=== PATIENT | female | born 1970 | race Caucasian/White ===

== ENCOUNTER 2016-09-25 22:44 | Emergency (ER) | payer BC ==
[2016-09-25 22:48] VITALS: RESP 18; TEMP 97.2
[2016-09-25] MEDS ORDERED: SODIUM CHLORIDE 0.9% 1,000 ML IV STA ×2 (22:58)
[2016-09-25] MEDS ORDERED: ONDANSETRON 4 MG/2 ML VIAL IVP STA (23:00)
--- NOTE | 2016-09-25 23:13 | ED ---
Syncope HPI - General Chief Complaint: Syncope Stated Complaint: Syncope Time Seen by Provider: 09/25/16 22:53 Source: patient, family, RN notes reviewed Mode of arrival: wheelchair Limitations: no limitations - History of Present Illness Initial Comments: This is a 46-year-old female history diabetes who states she's been nauseated and having vomiting episodes since 10 PM. She states she passed out on her bed for about 2 minutes. She had a headache prior she still feels nauseated she also complains some swelling to her left leg for about the last week. She has no history of palpitations heart disease lung disease. No prior histories of syncope. No other complaints this time MD Complaint: loss of consciousness, other - Related Data Home Medications Medication Instructions Recorded Confirmed Fish Oil/Dha/Epa [Fish Oil 1,200 1 cap PO DAILY PRN 09/29/14 09/29/14 mg Fish Oil] HYDROcodone/APAP 7.5-325MG [Anderson 1 each PO Q4H PRN 09/29/14 09/29/14 7.5-325] Insulin Aspart [NovoLOG] 0 units SQ ACHS 10/01/14 10/01/14 Insulin Aspart [NovoLOG] 6 SQ TID-W/MEALS 10/01/14 10/01/14 Previous Rx's Medication Instructions Recorded Insulin Glargine [Lantus] 20 unit SQ HS 30 Days 10/01/14 Benzonatate [Tessalon Perles] 100 mg PO TID PRN #15 cap 09/26/16 Ondansetron [Zofran ODT] 4 mg PO Q8HR #10 tab 09/26/16 Allergies Allergy/AdvReac Type Severity Reaction Status Date / Time No Known Allergies Allergy Verified 09/25/16 22:48 Review of Systems ROS Statement: Those systems with pertinent positive or pertinent negative responses have been documented in the HPI. ROS Other: All systems not noted in ROS Statement are negative. Past Medical History Past Medical History: Diabetes Mellitus, Thyroid Disorder History of Any Multi-Drug Resistant Organisms: None Reported Past Surgical History: Hysterectomy Additional Past Surgical History / Comment(s): THYROIDECTOMY 16 YRS AGO Past Anesthesia/Blood Transfusion Reactions: No Reported Reaction Past Psychological History: No Psychological Hx Reported Smoking Status: Never smoker Past Alcohol Use History: None Reported Past Drug Use History: None Reported - Past Family History Mother Family Medical History: Cancer, Deep Vein Thrombosis (DVT) General Exam - General Exam Comments Initial Comments: This is a well-developed well-nourished awake alert oriented 3 female Limitations: no limitations General appearance: alert, in no apparent distress Head exam: Present: atraumatic, normocephalic, normal inspection Eye exam: Present: normal appearance, PERRL, EOMI. Absent: scleral icterus, conjunctival injection, periorbital swelling ENT exam: Present: mucous membranes dry Neck exam: Present: normal inspection. Absent: tenderness, meningismus, lymphadenopathy Respiratory exam: Present: normal lung sounds bilaterally. Absent: respiratory distress, wheezes, rales, rhonchi, stridor Cardiovascular Exam: Present: normal rhythm, tachycardia, normal heart sounds. Absent: systolic murmur, diastolic murmur, rubs, gallop, clicks GI/Abdominal exam: Present: soft, normal bowel sounds. Absent: distended, tenderness, guarding, rebound, rigid Extremities exam: Present: normal inspection, full ROM, normal capillary refill. Absent: tenderness, pedal edema, joint swelling, calf tenderness Back exam: Present: normal inspection Neurological exam: Present: alert, oriented X3, CN II-XII intact Psychiatric exam: Present: normal affect, normal mood Skin exam: Present: warm, dry, intact, normal color. 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 Patient is feeling somewhat better she will be discharged after medications given. Patient will be discharged to follow-up with her doctor and return. She has had a cough which is likely secondary to bronchitis patient be placed on an antitussive. She is a follow-up with her doctor for evaluation of the small left pleural effusion and edema. - Lab Data Result diagrams: 09/25/16 23:20 09/25/16 23:20 Lab Results 09/25/16 09/25/16 09/25/16 Range/Units 23:20 23:20 23:20 WBC 7.1 (3.8-10.6) k/uL RBC 4.22 (3.80-5.40) m/uL Hgb 11.7 (11.4-16.0) gm/dL Hct 35.1 (34.0-46.0) % MCV 83.2 (80.0-100.0) fL MCH 27.7 (25.0-35.0) pg MCHC 33.3 (31.0-37.0) g/dL RDW 13.8 (11.5-15.5) % Plt Count 201 (150-450) k/uL Neutrophils % 63 % Lymphocytes % 28 % Monocytes % 4 % Eosinophils % 2 % Basophils % 1 % Neutrophils # 4.5 (1.3-7.7) k/uL Lymphocytes # 2.0 (1.0-4.8) k/uL Monocytes # 0.3 (0-1.0) k/uL Eosinophils # 0.2 (0-0.7) k/uL Basophils # 0.1 (0-0.2) k/uL PT (9.0-12.0) sec INR (<1.2) APTT (22.0-30.0) sec Sodium 139 (137-145) mmol/L Potassium 4.4 (3.5-5.1) mmol/L Chloride 107 (98-107) mmol/L Carbon Dioxide 22 (22-30) mmol/L Anion Gap 10 mmol/L BUN 16 (7-17) mg/dL Creatinine 0.70 (0.52-1.04) mg/dL Est GFR (MDRD) Af Amer >60 (>60 ml/min/1.73 sqM) Est GFR (MDRD) Non-Af >60 (>60 ml/min/1.73 sqM) Glucose 345 H (74-99) mg/dL Calcium 9.4 (8.4-10.2) mg/dL Magnesium 1.6 (1.6-2.3) mg/dL Total Bilirubin 0.4 (0.2-1.3) mg/dL AST 12 L (14-36) U/L ALT 26 (9-52) U/L Alkaline Phosphatase 88 (38-126) U/L Total Creatine Kinase 76 (30-135) U/L CK-MB (CK-2) 1.0 (0.0-2.4) ng/mL CK-MB (CK-2) Rel Index 1.3 Troponin I <0.012 (0.000-0.034) ng/mL Total Protein 6.2 L (6.3-8.2) g/dL Albumin 3.5 (3.5-5.0) g/dL Urine Color Urine Appearance (Clear) Urine pH (5.0-8.0) Ur Specific Whitney (1.001-1.035) Urine Protein (Negative) Urine Glucose (UA) (Negative) Urine Ketones (Negative) Urine Blood (Negative) Urine Nitrite (Negative) Urine Bilirubin (Negative) Urine Urobilinogen (<2.0) mg/dL Ur Leukocyte Esterase (Negative) Urine RBC (0-5) /hpf Urine WBC (0-5) /hpf Ur Squamous Epith Cells (0-4) /hpf Urine Bacteria (None) /hpf Hyaline Casts (0-2) /lpf Acetone, Qual Negative (Negative) 09/25/16 09/26/16 Range/Units 23:20 00:10 WBC (3.8-10.6) k/uL RBC (3.80-5.40) m/uL Hgb (11.4-16.0) gm/dL Hct (34.0-46.0) % MCV (80.0-100.0) fL MCH (25.0-35.0) pg MCHC (31.0-37.0) g/dL RDW (11.5-15.5) % Plt Count (150-450) k/uL Neutrophils % % Lymphocytes % % Monocytes % % Eosinophils % % Basophils % % Neutrophils # (1.3-7.7) k/uL Lymphocytes # (1.0-4.8) k/uL Monocytes # (0-1.0) k/uL Eosinophils # (0-0.7) k/uL Basophils # (0-0.2) k/uL PT 10.1 (9.0-12.0) sec INR 1.0 (<1.2) APTT 21.9 L (22.0-30.0) sec Sodium (137-145) mmol/L Potassium (3.5-5.1) mmol/L Chloride (98-107) mmol/L Carbon Dioxide (22-30) mmol/L Anion Gap mmol/L BUN (7-17) mg/dL Creatinine (0.52-1.04) mg/dL Est GFR (MDRD) Af Amer (>60 ml/min/1.73 sqM) Est GFR (MDRD) Non-Af (>60 ml/min/1.73 sqM) Glucose (74-99) mg/dL Calcium (8.4-10.2) mg/dL Magnesium (1.6-2.3) mg/dL Total Bilirubin (0.2-1.3) mg/dL AST (14-36) U/L ALT (9-52) U/L Alkaline Phosphatase (38-126) U/L Total Creatine Kinase (30-135) U/L CK-MB (CK-2) (0.0-2.4) ng/mL CK-MB (CK-2) Rel Index Troponin I (0.000-0.034) ng/mL Total Protein (6.3-8.2) g/dL Albumin (3.5-5.0) g/dL Urine Color Light Yellow Urine Appearance Clear (Clear) Urine pH 6.5 (5.0-8.0) Ur Specific Whitney 1.022 (1.001-1.035) Urine Protein 2+ H (Negative) Urine Glucose (UA) 4+ H (Negative) Urine Ketones Negative (Negative) Urine Blood Small H (Negative) Urine Nitrite Negative (Negative) Urine Bilirubin Negative (Negative) Urine Urobilinogen <2.0 (<2.0) mg/dL Ur Leukocyte Esterase Negative (Negative) Urine RBC 4 (0-5) /hpf Urine WBC <1 (0-5) /hpf Ur Squamous Epith Cells 3 (0-4) /hpf Urine Bacteria Rare H (None) /hpf Hyaline Casts 3 H (0-2) /lpf Acetone, Qual (Negative) - Radiology Data Radiology results: report reviewed (I did review the imaging and reports there is evidence of a pleural effusion on the left and some atelectasis in the right ), image reviewed Disposition Clinical Impression: Gastritis, Bronchitis, Diabetes, Pleural effusion Disposition: HOME SELF-CARE Condition: Good Instructions: Gastritis (ED), Acute Bronchitis (ED), Pleural Effusion (ED) Additional Instructions: Keep her appointment with Dr. Ventura as planned Prescriptions: Benzonatate [Tessalon Perles] 100 mg PO TID PRN #15 cap PRN Reason: Cough Ondansetron [Zofran ODT] 4 mg PO Q8HR #10 tab Referrals: Jamila Ventura MD [Primary Care Provider] - 1-2 days
[2016-09-25 23:32] LABS: Basophils # (A) 0.1 k/uL (0-0.2); Basophils % (A) 1 %; CH 28.7; CHCM 34.6; Eosinophils # (A) 0.2 k/uL (0-0.7); Eosinophils % (A) 2 %; HCT 35.1 % (34.0-46.0); HDW 3.14; HGB 11.7 gm/dL (11.4-16.0); Luc # (Auto) 0.09; Luc % (Auto) 1; Lymphocytes % (A) 28 %; MCH 27.7 pg (25.0-35.0); MCHC 33.3 g/dL (31.0-37.0); MCV 83.2 fL (80.0-100.0); Mean Platelet Volume 8.2; Monocytes # (A) 0.3 k/uL (0-1.0); Monocytes % (A) 4 %; Neutrophils # (A) 4.5 k/uL (1.3-7.7); Neutrophils % (A) 63 %; RBC 4.22 m/uL (3.80-5.40); RDW 13.8 % (11.5-15.5); WBC 7.1 k/uL (3.8-10.6); WBC (Perox) 7.38
[2016-09-25 23:42] LABS: ALT 26 U/L (9-52); AST 12 U/L (14-36); Alkaline Phosphatase 88 U/L (38-126); Anion Gap 10 mmol/L; Blood Urea Nitrogen 16 mg/dL (7-17); Calcium 9.4 mg/dL (8.4-10.2); Carbon Dioxide 22 mmol/L (22-30); Chloride 107 mmol/L (98-107); Glucose 345 mg/dL (74-99); Magnesium 1.6 mg/dL (1.6-2.3); Non-African American GFR(MDRD) >60 (>60 ml/min/1.73 sqM); Potassium 4.4 mmol/L (3.5-5.1); Sodium 139 mmol/L (137-145); Total Bilirubin 0.4 mg/dL (0.2-1.3); Total Protein 6.2 g/dL (6.3-8.2)
--- NOTE | 2016-09-25 23:47 | XR ---
EXAM: XR Chest, 2 Views CLINICAL HISTORY: Reason: syncope TECHNIQUE: Frontal and lateral views of the chest. COMPARISON: No relevant prior studies available. FINDINGS: Lungs: Right basilar atelectasis. Pleural space: Small left pleural effusion/pleural thickening. Heart: Unremarkable. No cardiomegaly. Mediastinum: Unremarkable. Bones/joints: Unremarkable. IMPRESSION: 1. Small left pleural effusion/pleural thickening. 2. Right basilar atelectasis.
[2016-09-25 23:51] LABS: Partial Thromboplastin Time 21.9 sec (22.0-30.0); Prothrombin Time 10.1 sec (9.0-12.0)
[2016-09-25 23:53] LABS: Creatine Kinase 76 U/L (30-135)
[2016-09-26 00:06] LABS: Troponin I <0.012 ng/mL (0.000-0.034)
[2016-09-26] MEDS ORDERED: SODIUM CHLORIDE 0.9% 500 ML IV STA (00:15)
[2016-09-26 00:45] LABS: Appearance,Urine Clear (Clear); Bacteria,Urine Rare /hpf; Bilirubin,Urine Negative (Negative); Glucose,Urine (UA) 4+ (Negative); Ketones,Urine Negative (Negative); Leukocyte Esterase,Urine Negative (Negative); Nitrite,Urine Negative (Negative); PH, Urine 6.5 (5.0-8.0); Particle Count 2002; Protein,Urine 2+ (Negative); RBC,Urine 4 /hpf (0-5); Specific Gravity,Urine 1.022 (1.001-1.035); Squamous Epithelial Cell,Urine 3 /hpf (0-4); UA Billing (MACRO vs. MICRO) MICRO; Urobilinogen,Urine <2.0 mg/dL (<2.0); WBC,Urine <1 /hpf (0-5)
[2016-09-26] MEDS ORDERED: ONDANSETRON 4 MG/2 ML VIAL IVP STA (00:55)
[2016-09-26 01:18] VITALS: BP 155/99; PULSE 96
== END 2016-09-26 01:17 | disposition home or self-care (01) ==
LOC: EC 22:44
DX: K29.70 Gastritis, unspecified, without bleeding (principal); J40 Bronchitis, not specified as acute or chronic; J90 Pleural effusion, not elsewhere classified; E11.9 Type 2 diabetes mellitus without complications; Z79.4 Long term (current) use of insulin
CPT/HCPCS: 36415; 93005; 80053; 82550; 82553; 82009; 83735; 84484; 85025; 85610; 85730; 81001; 71020; 99284; 96374; 96376; 96361 ×2; J2405 ×2

== ENCOUNTER → 2016-10-15 | Outpatient (CLI) | payer BC ==
--- NOTE | 2016-10-15 18:45 | ECHOF ---
Referral Reason:R60 Bilat leg edema,I10 Hypertension,J91.8 Pleural MEASUREMENTS -------- HEIGHT: 167.6 cm WEIGHT: 95.3 kg BP: IVSd: 1.0 cm (0.6 - 1.1) LVIDd: 5.2 cm (3.9 - 5.3) LVPWd: 1.2 cm (0.6 - 1.1) IVSs: 1.2 cm LVIDs: 4.0 cm LVPWs: 1.5 cm IVSd: 0.7 cm (0.6 - 1.1) LVIDd: 5.4 cm (3.9 - 5.3) LVPWd: 0.9 cm (0.6 - 1.1) IVSs: 1.1 cm LVIDs: 4.3 cm LVPWs: 1.1 cm EDV(Teich): 140 ml ESV(Teich): 83 ml EF(Teich): 41 % %FS: 20 % SV(Teich): 57 ml Ao Diam: 2.7 cm (2.0 - 3.7) AV Cusp: 2.0 cm (1.5 - 2.6) LA Diam: 2.7 cm (2.7 - 3.8) MV EXCURSION: 11.106 mm (> 18.000) MV EF SLOPE: 71 mm/s (70 - 150) EPSS: 1.8 cm MV E Zoran: 0.85 m/s MV DecT: 86 ms MV A Zoran: 0.86 m/s MV E/A Ratio: 0.99 RAP: 5.00 mmHg RVSP: 7.62 mmHg FINDINGS -------- Sinus rhythm. This was a technically good study. Left ventricular wall thickness is normal. LV size is at upper limits of normal. There is mild global hypokinesis of LV . Overall left ventricular systolic function is mild-moderately impaired with, an EF between 40 - 45 %. The right ventricle is normal in size and function. The left atrium is normal in size. The right atrium is normal in size. The aortic valve is trileaflet, and appears structurally normal. No aortic stenosis or regurgitation. The mitral valve leaflets are mildly thickened. There is trace mitral regurgitation. Trace tricuspid regurgitation present. The right ventricular systolic pressure, as measured by Doppler, is 7.62mmHg. Pulmonic valve appears structurally normal. The aortic root size is normal. There is a small, generalized pericardial effusion present. CONCLUSIONS -------- 1. Sinus rhythm. 2. The mitral valve leaflets are mildly thickened. 3. There is trace mitral regurgitation. 4. Trace tricuspid regurgitation present. 5. The right ventricular systolic pressure, as measured by Doppler, is 7.62mmHg. 6. Pulmonic valve appears structurally normal. 7. The aortic root size is normal. 8. There is a small, generalized pericardial effusion present. 9. This was a technically good study. 10. Left ventricular wall thickness is normal. 11. There is mild global hypokinesis of LV . 12. Overall left ventricular systolic function is mild-moderately impaired with, an EF between 40 - 45 %. 13. The right ventricle is normal in size and function. 14. The left atrium is normal in size. 15. The right atrium is normal in size. 16. The aortic valve is trileaflet, and appears structurally normal. No aortic stenosis or regurgitation. COUNSELLORS: Nidia Santos RDCS
== END | disposition home or self-care (01) ==
LOC: RADECHMAIN 15:45
PROVIDERS: ATTEND Internal Medicine
DX: I08.1 Rheumatic disorders of both mitral and tricuspid valves (principal); J91.8 Pleural effusion in other conditions classified elsewhere
CPT/HCPCS: 93306

== ENCOUNTER → 2016-11-08 | Outpatient (CLI) | payer BC ==
[2016-11-08 17:10] LABS: ALT 30 U/L (9-52); AST 16 U/L (14-36); Alkaline Phosphatase 76 U/L (38-126); Anion Gap 7 mmol/L; Blood Urea Nitrogen 27 mg/dL (7-17); Calcium 9.6 mg/dL (8.4-10.2); Carbon Dioxide 27 mmol/L (22-30); Chloride 101 mmol/L (98-107); Glucose 386 mg/dL (74-99); Non-African American GFR(MDRD) >60 (>60 ml/min/1.73 sqM); Potassium 4.7 mmol/L (3.5-5.1); Sodium 135 mmol/L (137-145); Total Bilirubin 0.3 mg/dL (0.2-1.3); Total Protein 6.4 g/dL (6.3-8.2)
== END | disposition home or self-care (01) ==
LOC: LABWHC1 16:09
PROVIDERS: ATTEND Internal Medicine Interventional Cardiology
DX: I42.9 Cardiomyopathy, unspecified (principal)
CPT/HCPCS: 36415; 80053; 83880

== ENCOUNTER 2017-03-07 07:18 | Emergency (ER) | payer BC ==
--- NOTE | 2017-03-07 08:08 | ED ---
General Adult HPI - General Chief complaint: Upper Respiratory Infection Stated complaint: Cough Time Seen by Provider: 03/07/17 07:56 Source: patient, RN notes reviewed, old records reviewed Mode of arrival: ambulatory Limitations: no limitations - History of Present Illness Initial comments: This patient is a 47-year-old female presents today chief complaint of cough for the past week. She reports a nonproductive cough. She stores initially started out with sinus congestion and a sore throat. She reports she feels chilled, but denies any fevers. She reports she has coughing fits she's not able to stop them and becomes very short of breath. Patient states that she has history of diabetes and high blood pressure. She reports that she's been taking her prescribed medication regularly. She states that she's also noticed she's had some minor swelling around her ankles. He reports that since somewhat chronic. She was at Lasix at one point or other from her primary care physician but they discontinued it. Patient reports that she's had no chest pain, abdominal pain, nausea or vomiting. 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 - Related Data Home Medications Medication Instructions Recorded Confirmed Insulin Glargine [Lantus] 40 unit SQ BID 03/07/17 03/07/17 Lisinopril [Zestril] 5 mg PO DAILY 03/07/17 03/07/17 Previous Rx's Medication Instructions Recorded Azithromycin [Zithromax] 0 mg PO DIRECTED #6 tab 03/07/17 Promethazine/Dextromethorphan 5 ml PO QID #120 ml 03/07/17 [Phenergan DM Syrup] methylPREDNISolone [Medrol Dose 4 mg PO DIRECTED #1 pack 03/07/17 Pack] Allergies Allergy/AdvReac Type Severity Reaction Status Date / Time egg AdvReac Nausea & Verified 03/07/17 07:56 Vomiting & Diarrhea Review of Systems ROS Statement: Those systems with pertinent positive or pertinent negative responses have been documented in the HPI. ROS Other: All systems not noted in ROS Statement are negative. Past Medical History Past Medical History: Diabetes Mellitus, Thyroid Disorder History of Any Multi-Drug Resistant Organisms: None Reported Past Surgical History: Hysterectomy Additional Past Surgical History / Comment(s): THYROIDECTOMY 16 YRS AGO Past Anesthesia/Blood Transfusion Reactions: No Reported Reaction Past Psychological History: No Psychological Hx Reported Smoking Status: Never smoker Past Alcohol Use History: None Reported Past Drug Use History: None Reported - Past Family History Mother Family Medical History: Cancer, Deep Vein Thrombosis (DVT) General Exam - General Exam Comments Initial Comments: This patient is a 47-year-old female. Patient is actively coughing, but no acute distress. No evidence of respiratory distress. Limitations: no limitations General appearance: alert, in no apparent distress Head exam: Present: atraumatic, normocephalic, normal inspection Eye exam: Present: normal appearance, PERRL, EOMI. Absent: scleral icterus, conjunctival injection, periorbital swelling ENT exam: Present: normal exam, mucous membranes moist Neck exam: Present: normal inspection. Absent: tenderness, meningismus, lymphadenopathy Respiratory exam: Present: normal lung sounds bilaterally. Absent: respiratory distress, wheezes, rales, rhonchi, stridor Cardiovascular Exam: Present: regular rate, normal rhythm, normal heart sounds. Absent: systolic murmur, diastolic murmur, rubs, gallop, clicks GI/Abdominal exam: Present: soft Extremities exam: Present: normal inspection, full ROM, normal capillary refill , other (1+ pedal edema and bilateral lower extremities.). Absent: tenderness, pedal edema, joint swelling, calf tenderness Back exam: Present: normal inspection Neurological exam: Present: alert, oriented X3, CN II-XII intact Psychiatric exam: Present: normal affect, normal mood Skin exam: Present: warm, dry, intact, normal color. Absent: rash Course Vital Signs 03/07/17 07:20 Temperature 97.4 F L Pulse Rate 98 Respiratory 20 Rate Blood Pressure 185/80 O2 Sat by Pulse 100 Oximetry Medical Decision Making - Medical Decision Making This patient is a 47-year-old female presents with 1 week of upper respiratory congestion and cough. Patient also noticed some mild edema over bilateral ankles. She reports that she's had the symptoms intermittently in the past. Today patient has upper respiratory congestion, rhinorrhea, and a dry cough. Patient lungs sounds are clear. Patient is on appear to be in any acute distress. Denies any chest pain or abdominal pain or vomiting. At this time patient's chest x-ray shows evidence of a chronic minor pleural effusion. Patient was evaluated for this per primary care provider and had an echocardiogram done. I do not believe is any signs of acute heart failure. Today's chest x-ray appears to be somewhat better than previous chest x-rays. At this time I will give the patient a loading dose of Lasix. To help with the peripheral edema. Discussed the importance of ice and elevating her legs, and following up with primary care provider for most likely a low-dose Lasix within the next week. At this time I'll treat the patient's acute bronchitis-like symptoms related to her cough as well. Patient will be discharged with Medrol Dosepak and azithromycin. Discussed using her sliding scale to manage her elevated blood sugars. Patient agrees to treatment plan will comply. Return parameters were discussed. - Radiology Data Radiology results: report reviewed Chronic trace pleural effusions. Otherwise no acute cardiopulmonary process noted. Disposition Clinical Impression: Bronchitis, Pleural effusion Disposition: HOME SELF-CARE Condition: Good Instructions: Acute Bronchitis (ED) Additional Instructions: Patient advised to follow-up with primary care provider about the chronic swelling in the legs and chronic minor pleural effusion, return to the emergency department if any alarming signs or symptoms occur. Patient should take the medications as prescribed. Prescriptions: Azithromycin [Zithromax] 0 mg PO DIRECTED #6 tab methylPREDNISolone [Medrol Dose Pack] 4 mg PO DIRECTED #1 pack Promethazine/Dextromethorphan [Phenergan DM Syrup] 5 ml PO QID #120 ml Referrals: Jamila Ventura MD [Primary Care Provider] - 1-2 days Time of Disposition: 08:38
--- NOTE | 2017-03-07 08:21 | XR ---
EXAMINATION TYPE: XR chest 2V DATE OF EXAM: 03/07/2017 COMPARISON: 09/25/2016 HISTORY: Cough and lower extremity swelling TECHNIQUE: Frontal and lateral views of the chest are obtained. FINDINGS: There is no focal air space opacity or pneumothorax. Trace pleural effusions are present, similar to the prior. The cardiac silhouette size is within normal limits. The osseous structures a re intact. IMPRESSION: Chronic trace pleural effusions. Otherwise no acute cardiopulmonary process.
[2017-03-07] MEDS ORDERED: FUROSEMIDE 20 MG TAB PO STA (08:28)
[2017-03-07] MEDS ORDERED: PROMETHAZ-COD 6.25-10 MG/5 ML 5 ML CUP PO STA (08:28)
[2017-03-07 08:40] VITALS: BP 168/85; PULSE 96; RESP 18; TEMP 97.5
== END 2017-03-07 08:51 | disposition home or self-care (01) ==
LOC: EC 07:18
DX: J40 Bronchitis, not specified as acute or chronic (principal); J90 Pleural effusion, not elsewhere classified; R60.0 Localized edema; E11.9 Type 2 diabetes mellitus without complications; Z91.012 Allergy to eggs; Z79.4 Long term (current) use of insulin; Z79.899 Other long term (current) drug therapy
CPT/HCPCS: 71046; 99284

== ENCOUNTER → 2017-05-30 | Outpatient (CLI) | payer BC ==
[2017-05-30 08:18] LABS: HCT 29.8 % (34.0-46.0); HGB 10.2 gm/dL (11.4-16.0); MCH 28.3 pg (25.0-35.0); MCHC 34.2 g/dL (31.0-37.0); MCV 82.8 fL (80.0-100.0); Mean Platelet Volume 8.2; Platelet Count 201 k/uL (150-450); RBC 3.61 m/uL (3.80-5.40); RDW 14.5 % (11.5-15.5); WBC 10.7 k/uL (3.8-10.6)
[2017-05-30 08:33] LABS: Potassium 5.5 mmol/L (3.5-5.1)
== END | disposition home or self-care (01) ==
LOC: LABPAT 07:43
PROVIDERS: ATTEND Internal Medicine Interventional Cardiology
DX: Z01.812 Encounter for preprocedural laboratory examination (principal); I25.10 Atherosclerotic heart disease of native coronary artery without angina pectoris
CPT/HCPCS: 80051; 82565; 84520; 85027

== ENCOUNTER 2017-06-02 05:46 | Day surgery (SDC) | payer BC ==
[2017-05-27 08:40] VITALS: BMI 34.2
[~2017-06-02 05:46] MED LIST: NITROGLYCERIN SL TABS 0.4 MG TAB SUBLINGUAL PRN
[2017-06-02] MEDS ORDERED: SODIUM CHLORIDE 0.9% 1,000 ML in EMPTY BAG 1 BAG IV ONE (06:00)
[2017-06-02] MEDS ORDERED: ASPIRIN 325 MG TAB PO ONE (06:00)
[2017-06-02] MEDS ORDERED: ALPRAZolam 0.25 MG TAB PO PRN (06:00)
[2017-06-02 06:21] VITALS: PULSE 91; RESP 20; TEMP 97.9
[2017-06-02] MEDS ORDERED: INSULIN REGULAR 100 UNIT/ML VIAL SQ ONE (06:23)
[2017-06-02 06:26] LABS: Glucose,Whole Blood 311 mg/dL (75-99)
[2017-06-02 06:40] LABS: Calcium 9.6 mg/dL (8.4-10.2); Potassium 5.1 mmol/L (3.5-5.1)
[2017-06-02] MEDS ORDERED: fentaNYL (PF) 50 MCG/ML 2 ML AMP ONE (07:06)
[2017-06-02] MEDS ORDERED: VERAPAMIL 2.5 MG/ML 2 ML AMP ONE (07:06)
[2017-06-02] MEDS ORDERED: MIDAZOLAM 2 MG/2 ML VIAL ONE (07:06)
[2017-06-02] MEDS ORDERED: LIDOCAINE 2% INJ 20 MG/ML (20 ML MDV) ONE (07:06)
[2017-06-02] MEDS ORDERED: IV FLUID CONTINUATION 1,000 ML IV ONE (07:15)
[2017-06-02] MEDS ORDERED: HEPARIN SODIUM 1,000 UN/ML (10ML VL) ONE (07:21)
[2017-06-02] MEDS ORDERED: fentaNYL (PF) 50 MCG/ML 2 ML AMP IV ONE (07:28)
[2017-06-02] MEDS ORDERED: LIDOCAINE 2% INJ 20 MG/ML SQ ONE (07:31)
[2017-06-02] MEDS ORDERED: VERAPAMIL SYRINGE (5 MG/10 ML) INTRAARTER ONE (07:35)
[2017-06-02] MEDS ORDERED: HEPARIN SODIUM 1,000 UN/ML (10ML VL) IV ONE (07:46)
[2017-06-02] MEDS ORDERED: IOPAMIDOL-370 125ML BTL INJ ONE (07:53)
[2017-06-02] MEDS ORDERED: RX INFO: IV CONTRAST WAS GIVEN 1 EACH MISC MISCELLANE PRN (08:13)
[2017-06-02] MEDS ORDERED: SODIUM CHLORIDE 0.9% 1,000 ML IV SCH (08:15)
--- NOTE | 2017-06-02 08:33 | CC ---
CARDIAC CATHETERIZATION REPORT Mrs. Dixon is a 47-year-old female with a history of diabetes who recently has been complaining of progressive symptoms of dyspnea and edema, underwent a an echocardiogram revealed a mildly impaired left ventricular systolic function. There was evidence of anteroapical defect with partial normalization. In view of her presentation and her findings, recommendation was made regarding cardiac catheterization. The procedure, risks and complications were discussed with the patient who is in full understanding and agreement. PROCEDURE: Patient was brought to catheterization laboratory technician in the fasting semi-sedated state after receiving fentanyl and Benadryl and achieving moderate conscious sedated state. Using Xylocaine anesthesia in the Seldinger technique, a 6-Stateless sheath was introduced in the right radial artery. Selective right and left angiography performed using 5-Stateless 3 and half bend right and left Nomi catheter, multiple views of the coronary artery including hemiaxial views were obtained. Following that 5-Stateless tight pigtail catheter was introduced into the left ventricle and a 30 degree PORTILLO view of the left ventricle was obtained. Following that, the catheter and sheaths were removed. Hemostasis was obtained with deployment of a TR band. There was no immediate complication. Patient is returned to room in stable condition. Of note, the patient received 5000 units of heparin. FINDINGS: 1. Left main: This is a large-sized vessel bifurcating left circumflex, left anterior descending artery and ramus intermedius. Left main coronary artery has no evidence of high-grade stenosis. 2. Left anterior descending artery: This is a large-sized vessel reaching to the apex with a wraparound apex segment giving rise to a moderate-sized diagonal branch proximally. The left anterior descending artery as well as branches have no evidence of obstructive coronary artery disease. 3. Ramus intermedius: This is a large-sized vessel reaching toward the apical lateral wall. The ramus intermedius has no evidence of high-grade stenosis. 4. Left circumflex: This is a dominant vessel bifurcating distally PDA and posterolateral branches. The left circumflex as well as branches have no evidence of obstructive disease. 5. Right coronary artery is a small nondominant vessel that has no evidence of high- grade stenosis. 6. Left ventriculogram is performed 30-degree PORTILLO view and revealed normal left ventricular size with mild global hypokinesis. The estimated ejection fraction 45- 50%. There was no evidence of significant mitral regurgitation. HEMODYNAMICS: There was no gradient across the aortic valve. The left ventricular end-diastolic pressure was 16-20 mmHg. CONCLUSION: 1. Normal coronary arteries. 2. Mildly impaired left ventricular systolic function. RECOMMENDATION: Her findings are consistent with nonischemic cardiomyopathy. I recommend continued medical therapy with aggressive coronary risk modifications that have been initiated. Those findings and recommendations were discussed with the patient and family who are in full understanding and agreement. Duration of procedure: 29 minutes. MMCINDY / TABN: [id number] /
--- NOTE | 2017-06-02 08:40 | LTR ---
Dear Dr. Ventura: I had the pleasure of performing cardiac catheterization on Mrs. Dixon at [facility] on June 02 and a full copy of procedure note will be forwarded to you. In brief, she was found to have no evidence of obstructive coronary artery disease with a mildly impaired left ventricular systolic function. Those findings are consistent with nonischemic cardiomyopathy and based on those findings, I recommend continued medical therapy with the aggressive risk-factor modifications that have been initiated. Thank you again for allowing me to participate in her care. Please feel free to call for any questions. Sincerely yours, MMRACHELEL / IJN: [id number] /
[2017-06-02 08:41] LABS: Glucose,Whole Blood 256 mg/dL (75-99)
[2017-06-02] MEDS ORDERED: LISINOPRIL 5 MG TAB PO SCH (09:00)
[2017-06-02] MEDS ORDERED: INSULIN DETEMIR 100 UNIT/ML 10 ML VIAL SQ SCH (09:00)
[2017-06-02 13:25] VITALS: BP 151/81
[2017-06-03] MEDS ORDERED: ASPIRIN 81 MG PO SCH (09:00)
== END 2017-06-02 13:20 | disposition home or self-care (01) ==
LOC: CATHCVL 05:46
PROVIDERS: ATTEND Internal Medicine Interventional Cardiology
DX: I42.9 Cardiomyopathy, unspecified (principal); R94.39 Abnormal result of other cardiovascular function study; E11.9 Type 2 diabetes mellitus without complications; Z79.4 Long term (current) use of insulin; Z79.899 Other long term (current) drug therapy; Z79.82 Long term (current) use of aspirin
CPT/HCPCS: 93458; 80048; C1769 ×3; C1894; J2001; J3010; J1644; Q9967

== ENCOUNTER → 2017-06-14 | Outpatient (CLI) | payer BC ==
[2017-06-14 16:50] LABS: Albumin 3.4 g/dL (3.5-5.0); Calcium 9.9 mg/dL (8.4-10.2); Potassium 4.9 mmol/L (3.5-5.1); Total Bilirubin 0.3 mg/dL (0.2-1.3); Total Protein 6.3 g/dL (6.3-8.2)
== END | disposition home or self-care (01) ==
LOC: LABWHC1 16:02
PROVIDERS: ATTEND Internal Medicine Interventional Cardiology
DX: E78.2 Mixed hyperlipidemia (principal)
CPT/HCPCS: 36415; 80053; 80061

== ENCOUNTER → 2017-08-19 | Outpatient (CLI) | payer BC ==
[2017-08-19 08:58] LABS: ALT 26 U/L (9-52); AST 12 U/L (14-36); Cholesterol 160 mg/dL (<200); HDL Cholesterol 43 mg/dL (40-60); LDL Cholesterol,Calculated 81 mg/dL (0-99); Triglycerides 178 mg/dL (<150)
== END | disposition home or self-care (01) ==
LOC: LABWHC1 07:55
PROVIDERS: ATTEND Internal Medicine Interventional Cardiology
DX: E78.2 Mixed hyperlipidemia (principal)
CPT/HCPCS: 36415; 80061; 84450; 84460

== ENCOUNTER 2017-12-16 13:57 | Emergency (ER) | payer BC ==
[2017-12-16 14:31] VITALS: TEMP 98
--- NOTE | 2017-12-16 15:03 | ED ---
General Adult HPI - General Chief complaint: Upper Respiratory Infection Stated complaint: flu symptoms Time Seen by Provider: 12/16/17 14:39 Source: patient, RN notes reviewed Mode of arrival: ambulatory Limitations: no limitations - History of Present Illness Initial comments: Patient is a 47-year-old female who presents the emergency department with complaints of cough, nausea, vomiting, diarrhea for 3 weeks. She reports that she is short of breath and has some pain when she is coughing. She reports that she has not been able to eat or drink anything without vomiting over the last couple days. She was sent to the emergency department by the urgent care who said that she had dehydration and high blood glucose in the low 300s. She reports using Mucinex without relief. She admits to chills, chronic lower extremity edema and a "weak heart." Patient denies any recent fever, shortness of breath at rest, chest pain, back pain, abdominal pain, numbness or tingling, constipation, headaches or visual changes, or any other complaints. - Related Data Home Medications Medication Instructions Recorded Confirmed Insulin Glargine [Lantus] 25 unit SQ BID 03/07/17 06/02/17 Lisinopril [Zestril] 5 mg PO DAILY 03/07/17 06/02/17 Aspirin EC [Ecotrin Low Dose] 81 mg PO DAILY 05/27/17 06/02/17 Previous Rx's Medication Instructions Recorded Benzonatate [Tessalon Perles] 100 mg PO TID PRN #20 capsule 12/16/17 Furosemide [Lasix] 40 mg PO BID 5 Days tablet 12/16/17 Levofloxacin [Levaquin] 750 mg PO DAILY 7 Days tab 12/16/17 Allergies Allergy/AdvReac Type Severity Reaction Status Date / Time egg AdvReac Nausea & Verified 05/27/17 08:32 Vomiting & Diarrhea DIAL SOAP Allergy Rash/Hives Uncoded 05/27/17 12:45 Review of Systems ROS Statement: Those systems with pertinent positive or pertinent negative responses have been documented in the HPI. ROS Other: All systems not noted in ROS Statement are negative. Past Medical History Past Medical History: Diabetes Mellitus, Hypertension, Thyroid Disorder History of Any Multi-Drug Resistant Organisms: None Reported Past Surgical History: Heart Catheterization, Hysterectomy Additional Past Surgical History / Comment(s): LT THYROIDECTOMY 16 YRS AGO Past Anesthesia/Blood Transfusion Reactions: No Reported Reaction Past Psychological History: No Psychological Hx Reported Smoking Status: Never smoker Past Alcohol Use History: None Reported Past Drug Use History: None Reported - Past Family History Mother Family Medical History: Cancer, Deep Vein Thrombosis (DVT) General Exam - General Exam Comments Initial Comments: General: Well-developed, well-nourished, no acute distress HEENT: Normocephalic/atraumatic, PERRL, no pharynx erythema, swallowing well, external auditory canals no erythema, no exudates, TMs clear, no cervical lymph nodes. Moist mucous membranes. Neck: Supple, nontender Chest/Lungs: Slight crackles over the RLL. No signs of respiratory distress, no wheezes or rhonchi. Cardiac: Regular rate and rhythm, normal S1-S2, no murmurs rubs or gallops. Cap refill <3 seconds. Abdomen/GI: Soft, nontender, bowel sounds normal x4, no guarding, no rebound Skin: Warmth, no rashes or lesions, no cyanosis or diaphoresis Neurologic: A&O x 3, CN 2-12 intact Psychiatric: Mood and affect normal, judgment normal Limitations: no limitations Course Vital Signs 12/16/17 12/16/17 12/16/17 14:27 16:42 17:45 Temperature 98.0 F Pulse Rate 89 83 87 Respiratory 18 16 20 Rate Blood Pressure 158/82 173/81 184/85 O2 Sat by Pulse 97 100 92 L Oximetry 12/16/17 12/16/17 17:50 17:57 Temperature Pulse Rate 86 86 Respiratory Rate Blood Pressure O2 Sat by Pulse Oximetry Medical Decision Making - Medical Decision Making Patient is a 47-year-old female who presents to the emergency Department with complaints of cough, nausea, vomiting, diarrhea for the past 3 weeks. She has been tolerating PO water here and has not vomited. She does have heart failure ; she takes Lasix 20 mg twice a day at home. X-ray revealed cardiomegaly with small effusions and pulmonary venous congestion. EKG is normal. CBC and comprehensive metabolic panel revealed white blood cell count 7.2, potassium 5.5 , chloride 109, BUN 40, creatinine 1.33 which is slightly elevated from her baseline, glucose 281, acetone negative. Will give her Lasix 40 mg IV once here and one DuoNeb treatment. The patient lives at home with her and her [id number] and would like to go home. Will discharge the patient home with prescriptions for Levaquin to treat the pneumonia and Tessalon Pearls for cough. Will also prescribe Lasix 40 mg BID for 5 days for treatment of pulmonary venous congestion. She also needs a work note. Case discussed in detail with attending physician Dr. Solorzano. - Lab Data Result diagrams: 12/16/17 15:10 12/16/17 15:10 Lab Results 12/16/17 12/16/17 Range/Units 15:10 15:10 WBC 7.2 (3.8-10.6) k/uL RBC 3.27 L (3.80-5.40) m/uL Hgb 9.2 L (11.4-16.0) gm/dL Hct 27.9 L (34.0-46.0) % MCV 85.5 (80.0-100.0) fL MCH 28.3 (25.0-35.0) pg MCHC 33.1 (31.0-37.0) g/dL RDW 14.6 (11.5-15.5) % Plt Count 184 (150-450) k/uL Neutrophils % 73 % Lymphocytes % 21 % Monocytes % 4 % Eosinophils % 1 % Basophils % 1 % Neutrophils # 5.2 (1.3-7.7) k/uL Lymphocytes # 1.5 (1.0-4.8) k/uL Monocytes # 0.3 (0-1.0) k/uL Eosinophils # 0.1 (0-0.7) k/uL Basophils # 0.1 (0-0.2) k/uL Hypochromasia Slight Sodium 139 (137-145) mmol/L Potassium 5.5 H (3.5-5.1) mmol/L Chloride 109 H (98-107) mmol/L Carbon Dioxide 24 (22-30) mmol/L Anion Gap 6 mmol/L BUN 40 H (7-17) mg/dL Creatinine 1.33 H (0.52-1.04) mg/dL Est GFR (CKD-EPI)AfAm 56 (>60 ml/min/1.73 sqM) Est GFR (CKD-EPI)NonAf 48 (>60 ml/min/1.73 sqM) Glucose 281 H (74-99) mg/dL Calcium 8.7 (8.4-10.2) mg/dL Total Bilirubin 0.6 (0.2-1.3) mg/dL AST 16 (14-36) U/L ALT 34 (9-52) U/L Alkaline Phosphatase 102 (38-126) U/L Total Protein 5.9 L (6.3-8.2) g/dL Albumin 3.1 L (3.5-5.0) g/dL Acetone, Qual Negative (Negative) Disposition Clinical Impression: Pneumonia Disposition: HOME SELF-CARE Condition: Good Instructions: Pneumonia (ED) Additional Instructions: Follow-up with PCP in 2 days. Return to emergency department if symptoms worsen or any other concerns. Prescriptions: Benzonatate [Tessalon Perles] 100 mg PO TID PRN #20 capsule PRN Reason: Cough Furosemide [Lasix] 40 mg PO BID 5 Days tablet Levofloxacin [Levaquin] 750 mg PO DAILY 7 Days tab Is patient prescribed a controlled substance at d/c from ED?: No Referrals: Jamila Ventura MD [Primary Care Provider] - 1-2 days Time of Disposition: 18:49
[2017-12-16 15:29] LABS: Basophils # (A) 0.1 k/uL (0-0.2); Basophils % (A) 1 %; Eosinophils # (A) 0.1 k/uL (0-0.7); Eosinophils % (A) 1 %; HCT 27.9 % (34.0-46.0); HGB 9.2 gm/dL (11.4-16.0); Hypochromasia Slight; Lymphocytes # (A) 1.5 k/uL (1.0-4.8); Lymphocytes % (A) 21 %; MCH 28.3 pg (25.0-35.0); MCHC 33.1 g/dL (31.0-37.0); MCV 85.5 fL (80.0-100.0); Mean Platelet Volume 7.8; Monocytes # (A) 0.3 k/uL (0-1.0); Monocytes % (A) 4 %; Neutrophils # (A) 5.2 k/uL (1.3-7.7); Neutrophils % (A) 73 %; Platelet Count 184 k/uL (150-450); RBC 3.27 m/uL (3.80-5.40); RDW 14.6 % (11.5-15.5); WBC 7.2 k/uL (3.8-10.6)
[2017-12-16 15:32] LABS: ALT 34 U/L (9-52); AST 16 U/L (14-36); Albumin 3.1 g/dL (3.5-5.0); Alkaline Phosphatase 102 U/L (38-126); Anion Gap 6 mmol/L; Blood Urea Nitrogen 40 mg/dL (7-17); Calcium 8.7 mg/dL (8.4-10.2); Carbon Dioxide 24 mmol/L (22-30); Chloride 109 mmol/L (98-107); Glucose 281 mg/dL (74-99); Potassium 5.5 mmol/L (3.5-5.1); Sodium 139 mmol/L (137-145); Total Bilirubin 0.6 mg/dL (0.2-1.3); Total Protein 5.9 g/dL (6.3-8.2)
--- NOTE | 2017-12-16 15:40 | XR ---
EXAMINATION TYPE: XR chest 2V DATE OF EXAM: 12/16/2017 COMPARISON: March 07, 2017 HISTORY: Chest pain TECHNIQUE: Frontal and lateral views of the chest are obtained. FINDINGS: There is cardiomegaly with small effusions and pulmonary venous congestion. Correlate for pneumonia v ersus a mild congestive failure. Mediastinal structures are unremarkable. The osseous structures are grossly intact. IMPRESSION: 1. There is cardiomegaly with small effusions and pulmonary venous congestion. Correlate for pneumon ia versus a mild congestive failure.
[2017-12-16] MEDS ORDERED: FUROSEMIDE 10 MG/ML 4 ML VIAL IV STA (17:33)
[2017-12-16] MEDS ORDERED: IPRATROPIUM-ALBUTEROL 3 ML NEB INHALATION STA (17:34)
[2017-12-16 17:46] VITALS: BP 184/85; RESP 20
[2017-12-16 17:50] VITALS: PULSE 86
== END 2017-12-16 18:50 | disposition home or self-care (01) ==
LOC: EC 13:57
DX: J18.9 Pneumonia, unspecified organism (principal); I50.9 Heart failure, unspecified; J90 Pleural effusion, not elsewhere classified; I87.8 Other specified disorders of veins; R79.89 Other specified abnormal findings of blood chemistry; I11.0 Hypertensive heart disease with heart failure; E11.9 Type 2 diabetes mellitus without complications; Z91.012 Allergy to eggs; Z91.048 Other nonmedicinal substance allergy status; Z79.4 Long term (current) use of insulin; Z79.82 Long term (current) use of aspirin; Z79.899 Other long term (current) drug therapy; Z95.9 Presence of cardiac and vascular implant and graft, unspecified
CPT/HCPCS: 36415; 94640; 93005; 80053; 82009; 85025; 71046; 99285; 96374; J1940

== ENCOUNTER → 2018-01-16 | Outpatient (CLI) | payer BC ==
--- NOTE | 2018-01-16 22:58 | US ---
EXAMINATION TYPE: US kidneys/renal and bladder DATE OF EXAM: 01/16/2018 COMPARISON: 09/29/2014 CLINICAL HISTORY: 47-year-old female with R31.9 Hematuria. Renal insufficiency TECHNIQUE: Multiple sonographic images of the kidneys and bladder are obtained. FINDINGS: EXAM MEASUREMENTS: Right Kidney: 12.2 x 4.9 x 5.0 cm Left Kidney: 12.3 x 6.4 x 5.7 cm No hydronephrosis on either side. Bladder: not well visualized Bilateral Jets seen: No Incidental note is made of borderline enlarged spleen at 13.4 cm Incidental note is made of left pleural effusion IMPRESSION: 1. No hydronephrosis. 2. Borderline splenomegaly at 13.4 cm. 3. Incidental note of a left pleural effusion. Clinically correlate.
== END | disposition home or self-care (01) ==
LOC: RADUSWWP 14:39
PROVIDERS: ATTEND Internal Medicine
DX: R16.1 Splenomegaly, not elsewhere classified (principal); N28.9 Disorder of kidney and ureter, unspecified
CPT/HCPCS: 76770

== ENCOUNTER → 2019-01-05 | Outpatient (CLI) | payer BC ==
[2019-01-05 09:48] LABS: Basophils % (A) 0 %; Eosinophils # (A) 0.2 k/uL (0-0.7); Eosinophils % (A) 2 %; HCT 27.3 % (34.0-46.0); HGB 8.8 gm/dL (11.4-16.0); Lymphocytes % (A) 23 %; MCH 26.2 pg (25.0-35.0); MCHC 32.3 g/dL (31.0-37.0); MCV 81.2 fL (80.0-100.0); Mean Platelet Volume 7.9; Monocytes # (A) 0.4 k/uL (0-1.0); Monocytes % (A) 5 %; Neutrophils # (A) 6.2 k/uL (1.3-7.7); Neutrophils % (A) 70 %; Platelet Count 190 k/uL (150-450); RBC 3.36 m/uL (3.80-5.40); RDW 15.7 % (11.5-15.5); WBC 8.9 k/uL (3.8-10.6)
[2019-01-05 15:51] LABS: % Iron Saturation 11.15 (12.00-45.00); African American GFR (CKD) 22.5 (60.0-200.0); Albumin 3.9 g/dL (3.80-4.90); Albumin/Globulin Ratio 1.7 (1.60-3.17); Anion Gap 6.6 mmol/L (4.00-12.00); BUN/Creat Ratio 33.21 Ratio (12.00-20.00); Calcium 8.7 mg/dL (8.7-10.3); Carbon Dioxide 22.4 mmol/L (21.6-31.8); Globulin 2.3 g/dL (1.6-3.3); Magnesium 2.2 mg/dL (1.5-2.4); Phosphorus 4.9 mg/dL (2.4-5.1); Potassium 5.3 mmol/L (3.5-5.5); Total Bilirubin 0.4 mg/dL (0.3-1.2); Total Protein 6.2 g/dL (6.2-8.2)
[2019-01-05 16:47] LABS: Hemoglobin A1C 7.5 % (4.0-6.0)
== END ==
LOC: LABWHC1 09:07
PROVIDERS: ATTEND Nurse Practitioner Adult Health
DX: N18.3 Chronic kidney disease, stage 3 (moderate) (principal); I13.0 Hypertensive heart and chronic kidney disease with heart failure and stage 1 through stage 4 chronic kidney disease, or unspecified chronic kidney disease; I50.9 Heart failure, unspecified; E11.22 Type 2 diabetes mellitus with diabetic chronic kidney disease; E11.69 Type 2 diabetes mellitus with other specified complication
CPT/HCPCS: 36415; 80053; 83036; 83540; 83550; 83735; 83970; 84100; 84443; 85025

== ENCOUNTER → 2019-02-23 | Outpatient (CLI) | payer BC ==
--- NOTE | 2019-02-23 14:00 | XR ---
EXAMINATION TYPE: XR chest 2V DATE OF EXAM: 02/23/2019 COMPARISON: Chest x-ray December 16, 2017. HISTORY: Cough and congestion for 3 weeks. TECHNIQUE: Frontal and lateral views of the chest are obtained. FINDINGS: There small to tiny bilateral pleural effusions and cardiomegaly, effusions smaller versus prior. Mild central vascular congestion. No suspicious focal airspace opacity or pneumothorax bilate rally. The osseous structures are intact. IMPRESSION: Probable CHF exacerbation as there is cardiomegaly with mild central vascular congestion and small to tiny bilateral pleural effusions identified. Findings are less prominent versus prior x -ray.
== END | disposition home or self-care (01) ==
LOC: RAD 13:44
PROVIDERS: ATTEND Internal Medicine
DX: R06.02 Shortness of breath (principal); Z88.8 Allergy status to other drugs, medicaments and biological substances
CPT/HCPCS: 71046

== ENCOUNTER 2019-05-21 08:45 | Observation (INO) | payer BC ==
--- NOTE | 2019-05-21 09:19 | ED ---
General Adult HPI - General Chief complaint: Shortness of Breath Stated complaint: SOB, Cough Time Seen by Provider: 05/21/19 09:07 Source: patient, RN notes reviewed Mode of arrival: ambulatory Limitations: no limitations - History of Present Illness Initial comments: 49-year-old female with a past medical history of congestive heart failure, diabetes mellitus, hypertension, renal disease presents to the emergency department for a chief complaint of shortness of breath. Patient states she has felt short of breath for the past day. She did start yesterday when she developed a dry cough. Patient denies fevers or chills associated with this. Patient denies any significant congestion or sore throat. Patient denies a history of COPD or smoking. No asthma history. Patient is concerned she may be having an exacerbation of CHF. States that she was experiencing nausea and vomiting yesterday and was not able to keep down her water pill. Patient does not have any chest pains associated with this cough or shortness of breath. No history of DVT or PE. Patient has no other complaints at this time including chest pain, abdominal pain, nausea or vomiting, headache, or visual changes. - Related Data Home Medications Medication Instructions Recorded Confirmed Aspirin EC [Ecotrin Low Dose] 81 mg PO DAILY 05/27/17 05/21/19 Atorvastatin [Lipitor] 20 mg PO DAILY 05/21/19 05/21/19 Insulin Glargine,Hum.rec.anlog 40 unit SQ DAILY 05/21/19 05/21/19 [Lantus Solostar] Insulin Glargine,Hum.rec.anlog See Protocol SQ HS 05/21/19 05/21/19 [Lantus Solostar] Metoclopramide [Reglan] 5 mg PO AC-TID 05/21/19 05/21/19 Metolazone [Zaroxolyn] 2.5 mg PO DAILY 05/21/19 05/21/19 glipiZIDE XL [Glucotrol XL] 10 mg PO DAILY 05/21/19 05/21/19 hydrALAZINE HCL [Apresoline] 25 mg PO TID 05/21/19 05/21/19 Previous Rx's Medication Instructions Recorded Furosemide [Lasix] 40 mg PO BID 5 Days tablet 12/16/17 Albuterol Sulfate [Albuterol 2 puff PO Q4-6H PRN #1 inhaler 05/22/19 Sulfate Hfa] Azithromycin [Zithromax] 250 mg PO DAILY #4 tab 05/22/19 guaiFENesin SYRUP 100MG/5ML 200 mg PO Q6H PRN #40 ml 05/22/19 [Robitussin] Allergies Allergy/AdvReac Type Severity Reaction Status Date / Time egg AdvReac Nausea & Verified 05/21/19 09:42 Vomiting & Diarrhea DIAL SOAP Allergy Rash/Hives Uncoded 05/21/19 09:42 Review of Systems ROS Statement: Those systems with pertinent positive or pertinent negative responses have been documented in the HPI. ROS Other: All systems not noted in ROS Statement are negative. Past Medical History Past Medical History: Heart Failure, Diabetes Mellitus, Hypertension, Renal Disease, Thyroid Disorder History of Any Multi-Drug Resistant Organisms: None Reported Past Surgical History: Heart Catheterization, Hysterectomy Additional Past Surgical History / Comment(s): LT THYROIDECTOMY 16 YRS AGO Past Anesthesia/Blood Transfusion Reactions: No Reported Reaction Past Psychological History: No Psychological Hx Reported Smoking Status: Never smoker Past Alcohol Use History: None Reported Past Drug Use History: None Reported - Past Family History Mother Family Medical History: Cancer, Deep Vein Thrombosis (DVT) Father History Unknown: Yes Additional Family Medical History / Comment(s): Pt does not know her father. General Exam Limitations: no limitations General appearance: alert, in no apparent distress Head exam: Present: atraumatic, normocephalic, normal inspection Eye exam: Present: normal appearance, PERRL, EOMI. Absent: scleral icterus, conjunctival injection, periorbital swelling ENT exam: Present: normal exam, mucous membranes moist Neck exam: Present: normal inspection, full ROM. Absent: tenderness, meningismus, lymphadenopathy Respiratory exam: Present: normal lung sounds bilaterally. Absent: respiratory distress, wheezes, rales, rhonchi, stridor Cardiovascular Exam: Present: regular rate, normal rhythm, normal heart sounds. Absent: systolic murmur, diastolic murmur, rubs, gallop, clicks GI/Abdominal exam: Present: soft, normal bowel sounds. Absent: distended, tenderness, guarding, rebound, rigid Neurological exam: Present: alert Course Vital Signs 05/21/19 05/21/19 05/21/19 08:47 09:30 10:00 Temperature 98 F Pulse Rate 94 84 81 Pulse Rate [ Right Pulse Oximetery] Respiratory 18 22 20 Rate Blood Pressure 176/76 189/91 189/91 Blood Pressure [Right Arm] O2 Sat by Pulse 93 L 99 99 Oximetry 05/21/19 05/21/19 05/21/19 10:52 10:57 11:49 Temperature Pulse Rate 80 88 92 Pulse Rate [ Right Pulse Oximetery] Respiratory 22 Rate Blood Pressure 183/81 Blood Pressure [Right Arm] O2 Sat by Pulse 99 Oximetry 05/21/19 05/21/19 05/21/19 12:00 12:05 12:34 Temperature Pulse Rate 98 96 Pulse Rate [ Right Pulse Oximetery] Respiratory Rate Blood Pressure Blood Pressure [Right Arm] O2 Sat by Pulse 94 L Oximetry 05/21/19 05/21/19 13:00 13:11 Temperature 98.1 F 98 F Pulse Rate 103 H 103 H Pulse Rate [ 102 H Right Pulse Oximetery] Respiratory 21 20 Rate Blood Pressure 162/70 162/70 Blood Pressure 157/72 [Right Arm] O2 Sat by Pulse 92 L 96 Oximetry - Reevaluation(s) Reevaluation #1: 05/21/19 09:21 Patient had an echocardiogram performed on 10/05/2016 that showed an ejection fraction between 40-45 percent. Patient also had a heart catheterization performed about 2 years ago that showed normal coronary arteries with mildly impaired left ventricular systolic function. Ejection fraction at that time 45- 50%. There was mild global hypokinesis. EKG Findings - EKG Comments: EKG Findings:: Normal sinus rhythm, ventricular rate 88, OH interval 182, QTc 462 Medical Decision Making - Medical Decision Making 49-year-old female with a past medical history of CHF, dependent diabetes presents to the emergency department for a chief complaint of shortness of breath. Patient states she is not short of breath since yesterday. Patient has also had a dry cough. No fever. Patient initially presents with an O2 saturation of 93% on room air. She was given 2 L of oxygen and is now 99%. However when removed patient does desaturate down to 90%. CBC is unremarkable, patient has evidence of chronic anemia. CMP does show a creatinine of 2.51 which is secondary to patient's chronic kidney disease. Troponin is negative. BNP is 8690. Chest x-ray shows no focal consolidation or sequelae of active CHF. Her patient was started on Lasix given BNP and shortness of breath. Lungs are clear, therefore d-dimer was added and is elevated. As patient cannot have a computed tomography scan a VQ scan was ordered. This cannot be done until later this afternoon. Given shortness of breath as well as elevated d-dimer patient will be admitted for further management and to obtain VQ scan. - Lab Data Result diagrams: 05/22/19 05:26 05/22/19 05:26 Lab Results 05/21/19 05/21/19 05/21/19 Range/Units 09:12 09:12 09:12 WBC 7.0 (3.8-10.6) k/uL RBC 3.41 L (3.80-5.40) m/uL Hgb 9.1 L (11.4-16.0) gm/dL Hct 29.5 L (34.0-46.0) % MCV 86.5 (80.0-100.0) fL MCH 26.8 (25.0-35.0) pg MCHC 31.0 (31.0-37.0) g/dL RDW 16.1 H (11.5-15.5) % Plt Count 169 (150-450) k/uL Neutrophils % 79 % Lymphocytes % 14 % Monocytes % 4 % Eosinophils % 2 % Basophils % 1 % Neutrophils # 5.5 (1.3-7.7) k/uL Lymphocytes # 1.0 (1.0-4.8) k/uL Monocytes # 0.3 (0-1.0) k/uL Eosinophils # 0.1 (0-0.7) k/uL Basophils # 0.0 (0-0.2) k/uL Hypochromasia Slight Anisocytosis Slight PT 10.8 (9.0-12.0) sec INR 1.0 (<1.2) APTT 22.6 (22.0-30.0) sec D-Dimer (<0.60) mg/L FEU Sodium 141 (137-145) mmol/L Potassium 5.0 (3.5-5.1) mmol/L Chloride 113 H (98-107) mmol/L Carbon Dioxide 21 L (22-30) mmol/L Anion Gap 7 mmol/L BUN 64 H (7-17) mg/dL Creatinine 2.51 H (0.52-1.04) mg/dL Est GFR (CKD-EPI)AfAm 26 (>60 ml/min/1.73 sqM) Est GFR (CKD-EPI)NonAf 22 (>60 ml/min/1.73 sqM) Glucose 230 H (74-99) mg/dL Plasma Lactic Acid Sony (0.7-2.0) mmol/L Calcium 9.2 (8.4-10.2) mg/dL Magnesium 2.1 (1.6-2.3) mg/dL Total Bilirubin 0.8 (0.2-1.3) mg/dL AST 19 (14-36) U/L ALT 16 (4-34) U/L Alkaline Phosphatase 128 H (38-126) U/L Troponin I (0.000-0.034) ng/mL NT-Pro-B Natriuret Pep pg/mL Total Protein 6.5 (6.3-8.2) g/dL Albumin 3.4 L (3.5-5.0) g/dL 05/21/19 05/21/19 05/21/19 Range/Units 09:12 09:12 09:12 WBC (3.8-10.6) k/uL RBC (3.80-5.40) m/uL Hgb (11.4-16.0) gm/dL Hct (34.0-46.0) % MCV (80.0-100.0) fL MCH (25.0-35.0) pg MCHC (31.0-37.0) g/dL RDW (11.5-15.5) % Plt Count (150-450) k/uL Neutrophils % % Lymphocytes % % Monocytes % % Eosinophils % % Basophils % % Neutrophils # (1.3-7.7) k/uL Lymphocytes # (1.0-4.8) k/uL Monocytes # (0-1.0) k/uL Eosinophils # (0-0.7) k/uL Basophils # (0-0.2) k/uL Hypochromasia Anisocytosis PT (9.0-12.0) sec INR (<1.2) APTT (22.0-30.0) sec D-Dimer (<0.60) mg/L FEU Sodium (137-145) mmol/L Potassium (3.5-5.1) mmol/L Chloride (98-107) mmol/L Carbon Dioxide (22-30) mmol/L Anion Gap mmol/L BUN (7-17) mg/dL Creatinine (0.52-1.04) mg/dL Est GFR (CKD-EPI)AfAm (>60 ml/min/1.73 sqM) Est GFR (CKD-EPI)NonAf (>60 ml/min/1.73 sqM) Glucose (74-99) mg/dL Plasma Lactic Acid Sony 1.0 (0.7-2.0) mmol/L Calcium (8.4-10.2) mg/dL Magnesium (1.6-2.3) mg/dL Total Bilirubin (0.2-1.3) mg/dL AST (14-36) U/L ALT (4-34) U/L Alkaline Phosphatase (38-126) U/L Troponin I <0.012 (0.000-0.034) ng/mL NT-Pro-B Natriuret Pep 8690 pg/mL Total Protein (6.3-8.2) g/dL Albumin (3.5-5.0) g/dL 05/21/19 Range/Units 09:12 WBC (3.8-10.6) k/uL RBC (3.80-5.40) m/uL Hgb (11.4-16.0) gm/dL Hct (34.0-46.0) % MCV (80.0-100.0) fL MCH (25.0-35.0) pg MCHC (31.0-37.0) g/dL RDW (11.5-15.5) % Plt Count (150-450) k/uL Neutrophils % % Lymphocytes % % Monocytes % % Eosinophils % % Basophils % % Neutrophils # (1.3-7.7) k/uL Lymphocytes # (1.0-4.8) k/uL Monocytes # (0-1.0) k/uL Eosinophils # (0-0.7) k/uL Basophils # (0-0.2) k/uL Hypochromasia Anisocytosis PT (9.0-12.0) sec INR (<1.2) APTT (22.0-30.0) sec D-Dimer 0.80 H (<0.60) mg/L FEU Sodium (137-145) mmol/L Potassium (3.5-5.1) mmol/L Chloride (98-107) mmol/L Carbon Dioxide (22-30) mmol/L Anion Gap mmol/L BUN (7-17) mg/dL Creatinine (0.52-1.04) mg/dL Est GFR (CKD-EPI)AfAm (>60 ml/min/1.73 sqM) Est GFR (CKD-EPI)NonAf (>60 ml/min/1.73 sqM) Glucose (74-99) mg/dL Plasma Lactic Acid Sony (0.7-2.0) mmol/L Calcium (8.4-10.2) mg/dL Magnesium (1.6-2.3) mg/dL Total Bilirubin (0.2-1.3) mg/dL AST (14-36) U/L ALT (4-34) U/L Alkaline Phosphatase (38-126) U/L Troponin I (0.000-0.034) ng/mL NT-Pro-B Natriuret Pep pg/mL Total Protein (6.3-8.2) g/dL Albumin (3.5-5.0) g/dL Disposition Clinical Impression: Shortness of breath, Hypoxia, Elevated brain natriuretic peptide (BNP) level, Hyperglycemia Disposition: ADMITTED IP TO THIS HOSP Condition: Fair Is patient prescribed a controlled substance at d/c from ED?: No Time of Disposition: 12:09
--- NOTE | 2019-05-21 09:40 | XR ---
EXAMINATION TYPE: XR chest 2V DATE OF EXAM: 05/21/2019 COMPARISON: 02/23/2019 HISTORY: Difficulty breathing TECHNIQUE: Frontal and lateral views of the chest are obtained. FINDINGS: There is no focal air space opacity, pleural effusion, or pneumothorax seen. The cardiac silhouette size is enlarged. The osseous structures are intact. IMPRESSION: Large cardiomediastinal silhouette however no focal consolidation or sequela of active c ongestive heart failure radiographically is seen. No pulmonary vascular congestion.
[2019-05-21 09:44] LABS: Anisocytosis Slight; Basophils % (A) 1 %; Eosinophils # (A) 0.1 k/uL (0-0.7); Eosinophils % (A) 2 %; HCT 29.5 % (34.0-46.0); HGB 9.1 gm/dL (11.4-16.0); Hypochromasia Slight; Lymphocytes % (A) 14 %; MCH 26.8 pg (25.0-35.0); MCV 86.5 fL (80.0-100.0); Mean Platelet Volume 8.9; Monocytes # (A) 0.3 k/uL (0-1.0); Monocytes % (A) 4 %; Neutrophils # (A) 5.5 k/uL (1.3-7.7); Neutrophils % (A) 79 %; Platelet Count 169 k/uL (150-450); RBC 3.41 m/uL (3.80-5.40); RDW 16.1 % (11.5-15.5)
[2019-05-21 09:54] LABS: Albumin 3.4 g/dL (3.5-5.0); Calcium 9.2 mg/dL (8.4-10.2); Magnesium 2.1 mg/dL (1.6-2.3); Total Bilirubin 0.8 mg/dL (0.2-1.3); Total Protein 6.5 g/dL (6.3-8.2)
[2019-05-21 09:59] LABS: Partial Thromboplastin Time 22.6 sec (22.0-30.0); Prothrombin Time 10.8 sec (9.0-12.0)
[2019-05-21] MEDS ORDERED: IPRATROPIUM-ALBUTEROL 3 ML NEB INHALATION STA ×2 (10:36→11:36)
[2019-05-21] MEDS ORDERED: hydrALAZINE HCL 20 MG/ML 1 ML VIAL IVP STA (10:44)
[2019-05-21] MEDS ORDERED: FUROSEMIDE 10 MG/ML 4 ML VIAL IV STA (11:29)
[2019-05-21] MEDS ORDERED: NALOXONE 0.4 MG/ML 1 ML VIAL IV PRN (12:03)
[2019-05-21] MEDS ORDERED: IPRATROPIUM-ALBUTEROL 3 ML NEB INHALATION PRN (12:04)
[2019-05-21] MEDS: INSULIN ASPART (NovoLOG) 100 UNIT/ML VIAL SQ SCH ×3 (13:09→21:07)
[2019-05-21 13:12] LABS: Glucose,Whole Blood 229 mg/dL (75-99)
--- NOTE | 2019-05-21 13:50 | P.HPIM ---
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 The patient denies any subjective fevers chills or night sweats, she denies any myalgias, she denies an ostomy or change or loss of appetite. She reports intermittent wheezing denies any history of smoking, she denies any chest pain. She has had episodes of nausea associated with her cough but denies any vomiting. She denies any recent travel and reports that her immunizations are up-to-date. She reports relatively well controlled type 2 diabetes with a last known A1c of 6.5 drawn within the last month. In the ER the patient had a comprehensive workup hemoglobin was 9.1 , serum bicarb 21 , BUN 64 creatinine 2. 5. , blood sugar 230 NT proBNP 8690 , d-dimer elevated at 0.80. Chest x-ray showed cardiomegaly with no focal consolidation or cervical of active CHF, no pulmonary vascular congestion noted. The patient was noted to have elevated blood pressure systolically in the 180s, she was given a dose of hydralazine, Lasix and breathing treatment and recommended for admission. Past Medical History Past Medical History: Heart Failure, Diabetes Mellitus, Hypertension, Renal Disease, Thyroid Disorder History of Any Multi-Drug Resistant Organisms: None Reported Past Surgical History: Heart Catheterization, Hysterectomy Additional Past Surgical History / Comment(s): LT THYROIDECTOMY 16 YRS AGO Past Anesthesia/Blood Transfusion Reactions: No Reported Reaction Past Psychological History: No Psychological Hx Reported Smoking Status: Never smoker Past Alcohol Use History: None Reported Past Drug Use History: None Reported - Past Family History Mother Family Medical History: Cancer, Deep Vein Thrombosis (DVT) Father History Unknown: Yes Additional Family Medical History / Comment(s): Pt does not know her father. Medications and Allergies Home Medications Medication Instructions Recorded Confirmed Type Aspirin EC [Ecotrin Low Dose] 81 mg PO DAILY 05/27/17 05/21/19 History Furosemide [Lasix] 40 mg PO BID 5 Days tablet 12/16/17 05/21/19 Rx Atorvastatin [Lipitor] 20 mg PO DAILY 05/21/19 05/21/19 History Insulin Glargine,Hum.rec.anlog 40 unit SQ DAILY 05/21/19 05/21/19 History [Lantus Solostar] Insulin Glargine,Hum.rec.anlog See Protocol SQ HS 05/21/19 05/21/19 History [Lantus Solostar] Metoclopramide [Reglan] 5 mg PO AC-TID 05/21/19 05/21/19 History Metolazone [Zaroxolyn] 2.5 mg PO DAILY 05/21/19 05/21/19 History glipiZIDE XL [Glucotrol XL] 10 mg PO DAILY 05/21/19 05/21/19 History hydrALAZINE HCL [Apresoline] 25 mg PO TID 05/21/19 05/21/19 History Allergies Allergy/AdvReac Type Severity Reaction Status Date / Time egg AdvReac Nausea & Verified 05/21/19 09:42 Vomiting & Diarrhea DIAL SOAP Allergy Rash/Hives Uncoded 05/21/19 09:42 Physical Exam Vitals: Vital Signs Temp Pulse Resp BP Pulse Ox 05/21/19 13:11 98 F 103 H 20 162/70 96 05/21/19 13:00 103 H 20 162/70 96 05/21/19 12:34 94 L 05/21/19 12:05 96 05/21/19 12:00 98 05/21/19 11:49 92 22 183/81 99 05/21/19 10:57 88 05/21/19 10:52 80 05/21/19 10:00 81 20 189/91 99 05/21/19 09:30 84 22 189/91 99 05/21/19 08:47 98 F 94 18 176/76 93 L Intake and Output 05/20/19 05/21/19 05/21/19 22:59 06:59 14:59 Other: Weight 106.141 kg Constitutional: No acute distress, conversant, pleasant Eyes: Anicteric sclerae, moist conjunctiva, no lid-lag, PERRLA ENMT: NC/AT,Oropharynx clear, no erythema, exudates Neck:Supple, FROM, no masses, or JVD, No carotid bruits; No thyromegaly Lungs: Diminished in the bases clear to auscultation bilaterally no wheezes or rhonchi unlabored on room air Cardiovascular: Heart regular in rate and rhythm, No murmurs, gallops, or rubs no peripheral edema Abdominal: Soft Nontender, nom distended, no guarding, no rebound or rigidity, Normoactive bowel sounds No hepatomegaly, No splenomegaly, No palpable mass No abdominal wall hernia noted Skin: Normal temperature, tone, texture, turgor, No induration No subcutaneous nodules, No rash, lesions, No ulcers Extremities:No digital cyanosis No clubbing, Pedal pulses intact and symmetrical Radial pulses intact and symmetrical Normal gait and station, No calf tenderness Psychiatric: Alert and oriented to person, place and time, Appropriate affect Intact judgement Neuro: Muscles Strength 5/5 in all 4 extremities, Sensation to light touch grossly present throughout, Cranial nerves II-XII grossly intact. No focal sensory deficits Results CBC & Chem 7: 05/22/19 05:26 05/22/19 05:26 Labs: Abnormal Lab Results - Last 24 Hours (Table) 05/21/19 05/21/19 05/21/19 Range/Units 09:12 09:12 09:12 RBC 3.41 L (3.80-5.40) m/uL Hgb 9.1 L (11.4-16.0) gm/dL Hct 29.5 L (34.0-46.0) % RDW 16.1 H (11.5-15.5) % D-Dimer 0.80 H (<0.60) mg/L FEU Chloride 113 H (98-107) mmol/L Carbon Dioxide 21 L (22-30) mmol/L BUN 64 H (7-17) mg/dL Creatinine 2.51 H (0.52-1.04) mg/dL Glucose 230 H (74-99) mg/dL POC Glucose (mg/dL) (75-99) mg/dL Alkaline Phosphatase 128 H (38-126) U/L Albumin 3.4 L (3.5-5.0) g/dL 05/21/19 Range/Units 13:06 RBC (3.80-5.40) m/uL Hgb (11.4-16.0) gm/dL Hct (34.0-46.0) % RDW (11.5-15.5) % D-Dimer (<0.60) mg/L FEU Chloride (98-107) mmol/L Carbon Dioxide (22-30) mmol/L BUN (7-17) mg/dL Creatinine (0.52-1.04) mg/dL Glucose (74-99) mg/dL POC Glucose (mg/dL) 229 H (75-99) mg/dL Alkaline Phosphatase (38-126) U/L Albumin (3.5-5.0) g/dL Assessment and Plan Assessment: Dyspnea Viral illness Elevated NT proBNP Elevated d-dimer Type 2 diabetes with hyperglycemia Chronic kidney disease stage IV Anemia of chronic disease History of systolic Congestive heart failure Plan: the patient is placed in observation status, anticipated less than 2 midnight stay after presenting with shortness of breath and cough, likely respiratory viral illness, she denies any systemic signs such as fever or fatigue or less of appetite. Workup for her dyspnea yielded elevated NT proBNP and elevated d- dimer, echocardiogram and VQ scan of been ordered. Low suspicion of CHF exacerbation at this time as patient is clinically euvolemic, and without any indication of overload on imaging, suspect elevated NT proBNP secondary to chronic kidney disease stage IV . The patient is started on empiric coverage for PE with Eliquis pending her VQ scan results. At this time his low suspicion f or Covid 19, and cystoscopy will not be checked at this time. Patient has noted normal saturations on room air. She is noted to be hyperglycemic in the setting of type 2 diabetes, A1c 04/01/19 was 6.7 we will continue her home regimen in correlation with correctional scale insulin coverage. She does have noted anemia of chronic disease secondary to chronic kidney disease stahe IV which appears to be stable at this time. Will continue to follow her clinical course. CODE STATUS: Full Code Anticipated discharge place: Home Prophylaxis: DOACs Greater than 60 minutes was spent in evaluation of this medically complex patient
--- NOTE | 2019-05-21 15:06 | NM ---
EXAMINATION TYPE: NM pul vent and perfuse DATE OF EXAM: 05/21/2019 COMPARISON: Chest x-ray the same date HISTORY: Shortness of breath TECHNIQUE: Utilizing inhalation of 70.2 mCi Tc 99m DTPA aerosol and intravenous injection of 4.96 mC i of Tc 99m MAA, ventilation and perfusion images are acquired post injection in multiple projections . FINDINGS: Normal radiotracer distribution is noted in the lungs. There is no evidence of mismatched defects. He art appears enlarged. IMPRESSION: Low probability for pulmonary embolus. Cardiomegaly.
[2019-05-21] MEDS: SODIUM CHLORIDE 0.9% 1,000 ML IV SCH (15:12)
[2019-05-21] MEDS: FUROSEMIDE 40 MG TAB PO SCH (15:55)
[2019-05-21] MEDS: hydrALAZINE HCL 25 MG TAB PO SCH ×2 (15:56→21:06)
[2019-05-21] MEDS: METOCLOPRAMIDE 5 MG TAB PO SCH ×2 (15:56→17:48)
[2019-05-21] MEDS: APIXABAN 5 MG TAB PO SCH ×2 (15:56→21:06)
[2019-05-21 16:50] LABS: Glucose,Whole Blood 285 mg/dL (75-99)
[2019-05-21] MEDS ORDERED: guaiFENesin SYRUP 100MG/5ML 200 MG/10 ML CUP PO PRN (20:50)
[2019-05-21 20:54] LABS: Glucose,Whole Blood 291 mg/dL (75-99)
[2019-05-22 06:05] LABS: Basophils % (A) 1 %; Eosinophils # (A) 0.1 k/uL (0-0.7); Eosinophils % (A) 2 %; HCT 26.2 % (34.0-46.0); HGB 8.2 gm/dL (11.4-16.0); Hypochromasia Moderate; Lymphocytes # (A) 0.9 k/uL (1.0-4.8); Lymphocytes % (A) 14 %; MCH 27.1 pg (25.0-35.0); MCHC 31.2 g/dL (31.0-37.0); MCV 86.8 fL (80.0-100.0); Mean Platelet Volume 9.2; Monocytes # (A) 0.3 k/uL (0-1.0); Monocytes % (A) 4 %; Neutrophils # (A) 5.3 k/uL (1.3-7.7); Neutrophils % (A) 79 %; Platelet Count 176 k/uL (150-450); RBC 3.02 m/uL (3.80-5.40); RDW 15.7 % (11.5-15.5); WBC 6.7 k/uL (3.8-10.6)
[2019-05-22 06:15] LABS: Calcium 9.3 mg/dL (8.4-10.2); Potassium 5.1 mmol/L (3.5-5.1)
[2019-05-22] MEDS ORDERED: INSULIN DETEMIR (LEVEMIR) 100 UNIT/ML SYR SQ SCH (07:00)
[2019-05-22] MEDS: hydrALAZINE HCL 25 MG TAB PO SCH (07:29)
--- NOTE | 2019-05-22 07:29 | XR ---
EXAMINATION TYPE: XR chest 2V DATE OF EXAM: 05/22/2019 COMPARISON: Chest x-ray from yesterday. HISTORY: Cough and dyspnea. TECHNIQUE: Frontal and lateral views of the chest are obtained. FINDINGS: The osseous structures remain intact. Persistent mild cardiomegaly with small to tiny left pleural effusion and associated patchy left basilar atelectasis and/or infiltrate. Right lung remain s clear. Overlying EKG leads are redemonstrated. IMPRESSION: Persistent mild cardiomegaly with small to tiny left pleural effusion and patchy left ba silar atelectasis and/or infiltrate. In my opinion no significant change from most recent prior.
[2019-05-22 07:30] LABS: Glucose,Whole Blood 273 mg/dL (75-99)
[2019-05-22] MEDS ORDERED: glipiZIDE 5 MG TAB PO SCH (07:30)
[2019-05-22] MEDS: INSULIN ASPART (NovoLOG) 100 UNIT/ML VIAL SQ SCH ×2 (07:31→14:07)
[2019-05-22 08:01] VITALS: PULSE 92
[2019-05-22] MEDS ORDERED: AZITHROMYCIN 500 MG TAB PO STA (08:45)
[2019-05-22] MEDS ORDERED: hydrALAZINE HCL 25 MG TAB PO ONE (08:45)
[2019-05-22] MEDS ORDERED: hydrALAZINE HCL 50 MG TAB PO SCH ×2 (09:00→16:00)
[2019-05-22] MEDS ORDERED: ASPIRIN 81 MG PO SCH (09:00)
[2019-05-22] MEDS ORDERED: ATORVASTATIN 20 MG TAB PO SCH (09:00)
[2019-05-22] MEDS ORDERED: METOLAZONE 2.5 MG TAB PO SCH (09:00)
--- NOTE | 2019-05-22 09:04 | ECHOF ---
Referral Reason:elevated BNP/ SOA MEASUREMENTS -------- HEIGHT: 167.6 cm WEIGHT: 106.1 kg BP: 181/86 RVIDd: 3.3 cm (< 3.3) IVSd: 1.3 cm (0.6 - 1.1) LVIDd: 4.4 cm (3.9 - 5.3) LVPWd: 1.2 cm (0.6 - 1.1) IVSs: 1.6 cm LVIDs: 3.7 cm LVPWs: 2.1 cm LA Diam: 3.7 cm (2.7 - 3.8) LAESV Index (A-L): 26.56 ml/m Ao Diam: 3.0 cm (2.0 - 3.7) AV Cusp: 2.2 cm (1.5 - 2.6) MV EXCURSION: 10.759 mm (> 18.000) MV EF SLOPE: 65 mm/s (70 - 150) EPSS: 1.7 cm MV E Zoran: 1.47 m/s MV DecT: 148 ms MV A Zoran: 1.10 m/s MV E/A Ratio: 1.33 RAP: 15.00 mmHg RVSP: 53.42 mmHg TAPSE: 24.34 mm FINDINGS -------- Sinus rhythm. This was a technically adequate study. The left ventricular size is normal. There is mild concentric left ventricular hypertrophy. Overa ll left ventricular systolic function is mild-moderately impaired with, an EF between 40 - 45 %. The right ventricle is mildly enlarged. Normal LA size by volume 22+/-6 ml/m2. The right atrium is normal in size. Interatrial and interventricular septum intact. The aortic valve is trileaflet and appears structurally normal. Mild mitral regurgitation is present. Mild tricuspid regurgitation present. There is moderate pulmonary hypertension. The right ventric ular systolic pressure, as measured by Doppler, is 53.42mmHg. Trace/mild (physiologic) pulmonic regurgitation. The aortic root size is normal. The inferior vena cava is dilated with no significant inspiratory collapse which is consistent estima mick right atrial pressure of >15 mmHg. There is a small pericardial effusion located near the left ventricle. CONCLUSIONS -------- 1. Sinus rhythm. 2. This was a technically adequate study. 3. The left ventricular size is normal. 4. There is mild concentric left ventricular hypertrophy. 5. Overall left ventricular systolic function is mild-moderately impaired with, an EF between 40 - 45 %. 6. The right ventricle is mildly enlarged. 7. Normal LA size by volume 22+/-6 ml/m2. 8. The right atrium is normal in size. 9. Interatrial and interventricular septum intact. 10. The aortic valve is trileaflet and appears structurally normal. 11. Mild mitral regurgitation is present. 12. Mild tricuspid regurgitation present. 13. There is moderate pulmonary hypertension. 14. The right ventricular systolic pressure, as measured by Doppler, is 53.42mmHg. 15. Trace/mild (physiologic) pulmonic regurgitation. 16. The aortic root size is normal. 17. The inferior vena cava is dilated with no significant inspiratory collapse which is consistent es timated right atrial pressure of >15 mmHg. 18. There is a small pericardial effusion located near the left ventricle. [employer]OTO MIX OPERATOR: Chanda Phelan RDCS
[2019-05-22] MEDS: METOCLOPRAMIDE 5 MG TAB PO SCH ×2 (09:37→14:08)
[2019-05-22] MEDS: FUROSEMIDE 40 MG TAB PO SCH (09:37)
[2019-05-22 11:16] VITALS: BP 152/73; RESP 17; TEMP 97.9
[2019-05-22] MEDS ORDERED: FUROSEMIDE 10 MG/ML 4 ML VIAL IV STA (11:29)
--- NOTE | 2019-05-22 11:41 | P.DS ---
Providers Date of admission: 05/21/19 11:56 Expected date of discharge: 05/22/19 Attending physician: Tyrone Barragan MD [facility] Course: Discharge diagnosis Dyspnea multifactorial Viral URI Acute on chronic systolic CHF exacerbation mild Elevated d-dimer Type 2 diabetes with hyperglycemia Chronic kidney disease stage IV Anemia of chronic disease Hospital course The patient is a 49-year-old female with a history of type 2 diabetes and congestive heart failure that presented with dry cough and dyspnea of multifactorial etiology secondary to likely mild acute on chronic systolic CHF exacerbation after presenting with elevated proBNP of 8690 oh with initial chest x-ray negative for CHF or pulmonary congestion but follow-up chest x-ray did show some mild pleural effusion And or atelectasis/infiltrates. The patient was placed on supplemental oxygen and supportive therapies including breathing treatments, and antitussives were initiated along with empiric oral antibiotics with azithromycin. The patient's also treated with IV Lasix for careful diuresis given her history of chronic kidney disease stage IV. The patient was noted to have elevated blood sugars previous A1c A1c 04/01/19 was 6.7 and she was started on correctional scale insulin coverage. Given elevated d-dimer and the patient was treated empirically for PE with DAOCs eliquis until her VQ scan came back suggesting low probability of PE. The patient was doing well with significant improvement of her breathing and was subsequently discharged home in stable condition and instructed to self quarantine for the next 14 days after her influenza was negative and a cold but 19 was drawn prior to discharge. Discharge process took approximately 30 minutes Focused exam Respiratory: Diminished in the bases clear to auscultation bilaterally no wheezes or rhonchi. Patient Condition at Discharge: Fair Plan - Discharge Summary Discharge Rx Participant: No New Discharge Prescriptions: New guaiFENesin SYRUP 100MG/5ML [Robitussin] 200 mg PO Q6H PRN #40 ml PRN Reason: Cough Azithromycin [Zithromax] 250 mg PO DAILY #4 tab Albuterol Sulfate [Albuterol Sulfate Hfa] 2 puff PO Q4-6H PRN #1 inhaler PRN Reason: cough/wheezes/SOA Continue Aspirin EC [Ecotrin Low Dose] 81 mg PO DAILY Furosemide [Lasix] 40 mg PO BID 5 Days tablet Atorvastatin [Lipitor] 20 mg PO DAILY glipiZIDE XL [Glucotrol XL] 10 mg PO DAILY hydrALAZINE HCL [Apresoline] 25 mg PO TID Insulin Glargine,Hum.rec.anlog [Lantus Solostar] See Protocol SQ HS Insulin Glargine,Hum.rec.anlog [Lantus Solostar] 40 unit SQ DAILY Metoclopramide [Reglan] 5 mg PO AC-TID Metolazone [Zaroxolyn] 2.5 mg PO DAILY Discharge Medication List Aspirin EC [Ecotrin Low Dose] 81 mg PO DAILY 05/27/17 [History] Furosemide [Lasix] 40 mg PO BID 5 Days tablet 12/16/17 [Rx] Atorvastatin [Lipitor] 20 mg PO DAILY 05/21/19 [History] Insulin Glargine,Hum.rec.anlog [Lantus Solostar] 40 unit SQ DAILY 05/21/19 [History] Insulin Glargine,Hum.rec.anlog [Lantus Solostar] See Protocol SQ HS 05/21/19 [History] Metoclopramide [Reglan] 5 mg PO AC-TID 05/21/19 [History] Metolazone [Zaroxolyn] 2.5 mg PO DAILY 05/21/19 [History] glipiZIDE XL [Glucotrol XL] 10 mg PO DAILY 05/21/19 [History] hydrALAZINE HCL [Apresoline] 25 mg PO TID 05/21/19 [History] Albuterol Sulfate [Albuterol Sulfate Hfa] 2 puff PO Q4-6H PRN #1 inhaler 05/22/19 [Rx] Azithromycin [Zithromax] 250 mg PO DAILY #4 tab 05/22/19 [Rx] guaiFENesin SYRUP 100MG/5ML [Robitussin] 200 mg PO Q6H PRN #40 ml 05/22/19 [Rx] Follow up Appointment(s)/Referral(s): Jim Chau MD [Primary Care Provider] - 1-2 days Discharge Disposition: HOME SELF-CARE
[2019-05-22 11:55] LABS: Glucose,Whole Blood 230 mg/dL (75-99)
[2019-05-22] MEDS: SODIUM CHLORIDE 0.9% 1,000 ML IV SCH (14:07)
[2019-05-23] MEDS ORDERED: AZITHROMYCIN 250 MG TAB PO SCH (09:00)
== END 2019-05-22 13:55 | disposition home or self-care (01) ==
LOC: EC 08:45 → 3SCARD 11:56 → INTOOBSV 11:56 → 3SCARD 12:41
PROVIDERS: ADMIT Family Medicine; ATTEND Family Medicine
DX: R06.09 Other forms of dyspnea (principal); J06.9 Acute upper respiratory infection, unspecified; I13.0 Hypertensive heart and chronic kidney disease with heart failure and stage 1 through stage 4 chronic kidney disease, or unspecified chronic kidney disease; I50.23 Acute on chronic systolic (congestive) heart failure; E11.65 Type 2 diabetes mellitus with hyperglycemia; R79.89 Other specified abnormal findings of blood chemistry; R09.02 Hypoxemia; E89.0 Postprocedural hypothyroidism; E11.22 Type 2 diabetes mellitus with diabetic chronic kidney disease; R11.0 Nausea; D63.1 Anemia in chronic kidney disease; Z79.82 Long term (current) use of aspirin; Z79.899 Other long term (current) drug therapy; Z79.4 Long term (current) use of insulin; Z91.012 Allergy to eggs; Z91.048 Other nonmedicinal substance allergy status; Z90.710 Acquired absence of both cervix and uterus; Z80.9 Family history of malignant neoplasm, unspecified; Z82.49 Family history of ischemic heart disease and other diseases of the circulatory system
CPT/HCPCS: 96374; 96375; 99285; 36415; 94640 ×3; 93005; 93306; 85379; 83880; 80053; 80048; 83605; 83735; 84484; 85025 ×2; 85610; 85730; 87502; 71046 ×2; 78582; G0378 ×2; A9540; A9567; J0360; J1940

== ENCOUNTER → 2019-08-15 | Outpatient (CLI) | payer BC ==
--- NOTE | 2019-08-15 11:03 | XR ---
EXAMINATION TYPE: XR chest 2V DATE OF EXAM: 08/15/2019 COMPARISON: 05/22/2019 HISTORY: 49-year-old female R05, I50.9, J44.9, cough and shortness of breath. TECHNIQUE: Frontal and lateral views FINDINGS: Heart mildly enlarged. Mild perihilar and interstitial prominence. No mingo consolidation or pleural effusion. IMPRESSION: Cardiomegaly with perihilar density and mild interstitial prominence. Correlate to exclude CHF with m ild pulmonary vascular congestion.
[2019-08-15 11:08] LABS: Anisocytosis Slight; Basophils % (A) 0 %; Eosinophils # (A) 0.1 k/uL (0-0.7); Eosinophils % (A) 2 %; HCT 28.4 % (34.0-46.0); HGB 9.1 gm/dL (11.4-16.0); Hypochromasia Marked; Lymphocytes # (A) 0.9 k/uL (1.0-4.8); Lymphocytes % (A) 13 %; MCH 27.6 pg (25.0-35.0); MCHC 31.9 g/dL (31.0-37.0); MCV 86.5 fL (80.0-100.0); Mean Platelet Volume 8.9; Monocytes # (A) 0.3 k/uL (0-1.0); Monocytes % (A) 4 %; Neutrophils # (A) 5.6 k/uL (1.3-7.7); Neutrophils % (A) 80 %; Platelet Count 171 k/uL (150-450); Poikilocytosis Slight; RBC 3.29 m/uL (3.80-5.40); RDW 17.5 % (11.5-15.5); WBC 6.9 k/uL (3.8-10.6)
[2019-08-15 11:24] LABS: ALT 15 U/L (4-34); AST 16 U/L (14-36); African American GFR (CKD) 23 (>60 ml/min/1.73 sqM); Albumin 3.4 g/dL (3.5-5.0); Albumin/Globulin Ratio 1.1; Alkaline Phosphatase 125 U/L (38-126); Anion Gap 8 mmol/L; Blood Urea Nitrogen 64 mg/dL (7-17); Calcium 9.4 mg/dL (8.4-10.2); Carbon Dioxide 21 mmol/L (22-30); Chloride 107 mmol/L (98-107); Glucose 376 mg/dL (74-99); Non-African American GFR(CKD) 20 (>60 ml/min/1.73 sqM); Phosphorus 5.8 mg/dL (2.5-4.5); Potassium 5.2 mmol/L (3.5-5.1); Sodium 136 mmol/L (137-145); Total Bilirubin 0.6 mg/dL (0.2-1.3); Total Protein 6.4 g/dL (6.3-8.2)
[2019-08-15 18:08] LABS: % Iron Saturation 11.11 (12.00-45.00); Iron 32 ug/dL (50-170); Total Iron Binding Capacity 288 ug/dL (228-460)
[2019-08-15 19:50] LABS: Hemoglobin A1C 10.4 % (4.0-6.0)
== END | disposition home or self-care (01) ==
LOC: LABWHC1 09:58
PROVIDERS: ATTEND Nurse Practitioner Adult Health
DX: I50.9 Heart failure, unspecified (principal); R05 Cough; J44.9 Chronic obstructive pulmonary disease, unspecified; R11.2 Nausea with vomiting, unspecified; E11.69 Type 2 diabetes mellitus with other specified complication; N18.4 Chronic kidney disease, stage 4 (severe); R91.8 Other nonspecific abnormal finding of lung field
CPT/HCPCS: 80053; 84443; 83540; 83550; 84100; 85025; 83036; 71046; 36415; U0003

== ENCOUNTER 2019-09-16 23:37 | Observation (INO) | payer BC ==
[2019-09-17] MEDS ORDERED: ONDANSETRON 4 MG/2 ML VIAL IVP STA (00:03)
[2019-09-17 00:29] LABS: Anisocytosis Slight; Basophils % (A) 0 %; Eosinophils # (A) 0.1 k/uL (0-0.7); Eosinophils % (A) 2 %; HCT 27.7 % (34.0-46.0); HGB 8.6 gm/dL (11.4-16.0); Hypochromasia Marked; Lymphocytes # (A) 0.7 k/uL (1.0-4.8); Lymphocytes % (A) 10 %; MCH 26.6 pg (25.0-35.0); MCV 85.9 fL (80.0-100.0); Mean Platelet Volume 9.6; Monocytes # (A) 0.3 k/uL (0-1.0); Monocytes % (A) 4 %; Neutrophils # (A) 6.4 k/uL (1.3-7.7); Neutrophils % (A) 84 %; Platelet Count 162 k/uL (150-450); RBC 3.22 m/uL (3.80-5.40); RDW 16.9 % (11.5-15.5); WBC 7.6 k/uL (3.8-10.6)
[2019-09-17 00:40] LABS: Albumin 3.6 g/dL (3.5-5.0); Calcium 9.5 mg/dL (8.4-10.2); Potassium 5.6 mmol/L (3.5-5.1); Total Bilirubin 0.6 mg/dL (0.2-1.3); Total Protein 6.3 g/dL (6.3-8.2)
--- NOTE | 2019-09-17 00:58 | XR ---
EXAMINATION TYPE: XR chest 2V DATE OF EXAM: 09/17/2019 COMPARISON: 08/15/2019 HISTORY: Short of breath. Cough. TECHNIQUE: 2 views FINDINGS: Heart size cannot be evaluated because of AP projection. There is no heart failure. Lungs a re clear of consolidation. Heart is probably enlarged. Bony thorax is intact. There is no pleural eff usion. IMPRESSION: Mild cardiomegaly. No active cardiopulmonary disease. No heart failure seen. No adverse c hange.
[2019-09-17 01:00] LABS: Appearance,Urine Cloudy (Clear); Bilirubin,Urine Negative (Negative); Blood,Urine Small (Negative); Color,Urine Yellow; Glucose,Urine (UA) 3+ (Negative); Hyaline Casts,Urine 7 /lpf (0-2); Ketones,Urine Negative (Negative); Leukocyte Esterase,Urine Negative (Negative); Mucus,Urine Rare /hpf; Nitrite,Urine Negative (Negative); Protein,Urine 3+ (Negative); RBC,Urine 12 /hpf (0-5); Specific Gravity,Urine 1.016 (1.001-1.035); Squamous Epithelial Cell,Urine 4 /hpf (0-4); Urobilinogen,Urine <2.0 mg/dL (<2.0); WBC,Urine 3 /hpf (0-5)
[2019-09-17] MEDS ORDERED: TRIMETHOBENZAMIDE 100 MG/ML 2 ML VIAL IM STA (01:26)
[2019-09-17] MEDS ORDERED: SODIUM CHLORIDE 0.9% 500 ML 500 ML IV ONE (01:27)
[2019-09-17] MEDS ORDERED: NALOXONE 0.4 MG/ML 1 ML VIAL IV PRN (01:35)
--- NOTE | 2019-09-17 01:35 | ED ---
Nausea/Vomiting/Diarrhea HPI - General Chief complaint: Nausea/Vomiting/Diarrhea Stated complaint: vomiting,dizziness Time Seen by Provider: 09/16/19 23:46 Source: patient, family Mode of arrival: wheelchair Limitations: no limitations - History of Present Illness Initial comments: 49-year-old female patient with past medical history significant for diabetes, renal failure, congestive heart failure, and hypothyroid presents to the emergency department today for evaluation of vomiting, dizziness, and chest pain. Patient states that the symptoms started just prior to her shift at 11 PM this evening. Patient states she had several episodes of vomiting and became dizzy. States the chest pain started shortly afterwards. Patient states the pains to the left side of her chest, denies radiation to her arm or back. She denies any shortness of breath. Denies any increased swelling to the extremities. Patient denies any abdominal pain, constipation, or diarrhea. Denies any fever or chills. Denies any sick contacts or recent travel. Patient denies any recent rash, cough, numbness, tingling, weakness, hematuria, dysuria, urinary urgency, urinary frequency, headache, visual changes, or any other complaints. - Related Data Home Medications Medication Instructions Recorded Confirmed Aspirin EC [Ecotrin Low Dose] 81 mg PO DAILY 05/27/17 05/21/19 Atorvastatin [Lipitor] 20 mg PO DAILY 05/21/19 05/21/19 Insulin Glargine,Hum.rec.anlog 40 unit SQ DAILY 05/21/19 05/21/19 [Lantus Solostar] Insulin Glargine,Hum.rec.anlog See Protocol SQ HS 05/21/19 05/21/19 [Lantus Solostar] Metoclopramide [Reglan] 5 mg PO AC-TID 05/21/19 05/21/19 Metolazone [Zaroxolyn] 2.5 mg PO DAILY 05/21/19 05/21/19 glipiZIDE XL [Glucotrol XL] 10 mg PO DAILY 05/21/19 05/21/19 hydrALAZINE HCL [Apresoline] 25 mg PO TID 05/21/19 05/21/19 Previous Rx's Medication Instructions Recorded Furosemide [Lasix] 40 mg PO BID 5 Days tablet 12/16/17 Albuterol Sulfate [Albuterol 2 puff PO Q4-6H PRN #1 inhaler 05/22/19 Sulfate Hfa] Azithromycin [Zithromax] 250 mg PO DAILY #4 tab 05/22/19 guaiFENesin SYRUP 100MG/5ML 200 mg PO Q6H PRN #40 ml 05/22/19 [Robitussin] Allergies Allergy/AdvReac Type Severity Reaction Status Date / Time egg AdvReac Nausea & Verified 09/16/19 23:44 Vomiting & Diarrhea DIAL SOAP Allergy Rash/Hives Uncoded 09/16/19 23:44 Review of Systems ROS Statement: Those systems with pertinent positive or pertinent negative responses have been documented in the HPI. ROS Other: All systems not noted in ROS Statement are negative. Past Medical History Past Medical History: Heart Failure, Diabetes Mellitus, Hypertension, Renal Disease, Thyroid Disorder Additional Past Medical History / Comment(s): IDDM type II, CKD-pt does not know stage, lower leg/pedal edema, hypothyroid. History of Any Multi-Drug Resistant Organisms: None Reported Past Surgical History: Heart Catheterization, Hysterectomy Additional Past Surgical History / Comment(s): LT THYROIDECTOMY 16 YRS AGO Past Anesthesia/Blood Transfusion Reactions: No Reported Reaction Additional Past Anesthesia/Blood Transfusion Reaction / Comment(s): Pt states with spinal for hysterectomy she "felt them cut" Past Psychological History: No Psychological Hx Reported Smoking Status: Never smoker Past Alcohol Use History: None Reported Past Drug Use History: None Reported - Past Family History Father History Unknown: Yes Additional Family Medical History / Comment(s): Pt does not know her father. Mother Family Medical History: Cancer, Deep Vein Thrombosis (DVT) General Exam Limitations: no limitations General appearance: alert, in no apparent distress, other (This is a well- developed, well-nourished adult female patient in no acute distress. Vital signs upon presentation are temperature 98.4F, pulse 70, respirations 26, blood pressure 174/82, pulse ox 96% on room air.) Eye exam: Present: normal appearance, PERRL, EOMI. Absent: scleral icterus, conjunctival injection, periorbital swelling ENT exam: Present: normal exam, normal oropharynx, mucous membranes moist Respiratory exam: Present: normal lung sounds bilaterally. Absent: respiratory distress, wheezes, rales, rhonchi, stridor Cardiovascular Exam: Present: regular rate, normal rhythm, normal heart sounds. Absent: systolic murmur, diastolic murmur, rubs, gallop, clicks GI/Abdominal exam: Present: soft, normal bowel sounds. Absent: distended, tenderness, guarding, rebound, rigid Neurological exam: Present: alert, oriented X3, CN II-XII intact Psychiatric exam: Present: normal affect, normal mood Skin exam: Present: warm, dry, intact, normal color. Absent: rash Course Vital Signs 09/16/19 23:40 Temperature 98.4 F Pulse Rate 70 Respiratory 26 H Rate Blood Pressure 174/82 O2 Sat by Pulse 96 Oximetry Medical Decision Making - Medical Decision Making 49-year-old female patient with past medical history significant for congestive heart failure, renal failure, diabetes, hypothyroid, hypertension presents to the emergency department today for evaluation of vomiting, dizziness, chest pain. Physical examination revealed soft nontender abdomen. Lungs are clear to auscultation with good air movement. No pitting edema to the extremities. Labs reviewed and did reveal decreased hemoglobin 8.6, potassium 5.6, BUN 66, creatinine 2.88, glucose 237. Lab changes seem to be chronic for the patient. Urinalysis shows no sign for infection. EKG showed normal sinus rhythm with a prolonged QT interval. Upon reevaluation patient still reports chest discomfort and nausea. Patient will be admitted to the hospital for serial troponins, hydration, and monitoring. She is agreeable with this plan. - Lab Data Result diagrams: 09/17/19 00:23 09/17/19 00:23 Lab Results 09/17/19 09/17/19 09/17/19 Range/Units 00:23 00:23 00:23 WBC 7.6 (3.8-10.6) k/uL RBC 3.22 L (3.80-5.40) m/uL Hgb 8.6 L (11.4-16.0) gm/dL Hct 27.7 L (34.0-46.0) % MCV 85.9 (80.0-100.0) fL MCH 26.6 (25.0-35.0) pg MCHC 31.0 (31.0-37.0) g/dL RDW 16.9 H (11.5-15.5) % Plt Count 162 (150-450) k/uL Neutrophils % 84 % Lymphocytes % 10 % Monocytes % 4 % Eosinophils % 2 % Basophils % 0 % Neutrophils # 6.4 (1.3-7.7) k/uL Lymphocytes # 0.7 L (1.0-4.8) k/uL Monocytes # 0.3 (0-1.0) k/uL Eosinophils # 0.1 (0-0.7) k/uL Basophils # 0.0 (0-0.2) k/uL Hypochromasia Marked Anisocytosis Slight Sodium 138 (137-145) mmol/L Potassium 5.6 H (3.5-5.1) mmol/L Chloride 109 H (98-107) mmol/L Carbon Dioxide 21 L (22-30) mmol/L Anion Gap 8 mmol/L BUN 66 H (7-17) mg/dL Creatinine 2.88 H (0.52-1.04) mg/dL Est GFR (CKD-EPI)AfAm 22 (>60 ml/min/1.73 sqM) Est GFR (CKD-EPI)NonAf 19 (>60 ml/min/1.73 sqM) Glucose 237 H (74-99) mg/dL Calcium 9.5 (8.4-10.2) mg/dL Total Bilirubin 0.6 (0.2-1.3) mg/dL AST 25 (14-36) U/L ALT 19 (4-34) U/L Alkaline Phosphatase 125 (38-126) U/L Troponin I <0.012 (0.000-0.034) ng/mL Total Protein 6.3 (6.3-8.2) g/dL Albumin 3.6 (3.5-5.0) g/dL Lipase 254 (23-300) U/L Urine Color Urine Appearance (Clear) Urine pH (5.0-8.0) Ur Specific [place] (1.001-1.035) Urine Protein (Negative) Urine Glucose (UA) (Negative) Urine Ketones (Negative) Urine Blood (Negative) Urine Nitrite (Negative) Urine Bilirubin (Negative) Urine Urobilinogen (<2.0) mg/dL Ur Leukocyte Esterase (Negative) Urine RBC (0-5) /hpf Urine WBC (0-5) /hpf Ur Squamous Epith Cells (0-4) /hpf Hyaline Casts (0-2) /lpf Urine Mucus (None) /hpf 07/20/20 Range/Units 00:36 WBC (3.8-10.6) k/uL RBC (3.80-5.40) m/uL Hgb (11.4-16.0) gm/dL Hct (34.0-46.0) % MCV (80.0-100.0) fL MCH (25.0-35.0) pg MCHC (31.0-37.0) g/dL RDW (11.5-15.5) % Plt Count (150-450) k/uL Neutrophils % % Lymphocytes % % Monocytes % % Eosinophils % % Basophils % % Neutrophils # (1.3-7.7) k/uL Lymphocytes # (1.0-4.8) k/uL Monocytes # (0-1.0) k/uL Eosinophils # (0-0.7) k/uL Basophils # (0-0.2) k/uL Hypochromasia Anisocytosis Sodium (137-145) mmol/L Potassium (3.5-5.1) mmol/L Chloride (98-107) mmol/L Carbon Dioxide (22-30) mmol/L Anion Gap mmol/L BUN (7-17) mg/dL Creatinine (0.52-1.04) mg/dL Est GFR (CKD-EPI)AfAm (>60 ml/min/1.73 sqM) Est GFR (CKD-EPI)NonAf (>60 ml/min/1.73 sqM) Glucose (74-99) mg/dL Calcium (8.4-10.2) mg/dL Total Bilirubin (0.2-1.3) mg/dL AST (14-36) U/L ALT (4-34) U/L Alkaline Phosphatase (38-126) U/L Troponin I (0.000-0.034) ng/mL Total Protein (6.3-8.2) g/dL Albumin (3.5-5.0) g/dL Lipase (23-300) U/L Urine Color Yellow Urine Appearance Cloudy H (Clear) Urine pH 6.0 (5.0-8.0) Ur Specific [place] 1.016 (1.001-1.035) Urine Protein 3+ H (Negative) Urine Glucose (UA) 3+ H (Negative) Urine Ketones Negative (Negative) Urine Blood Small H (Negative) Urine Nitrite Negative (Negative) Urine Bilirubin Negative (Negative) Urine Urobilinogen <2.0 (<2.0) mg/dL Ur Leukocyte Esterase Negative (Negative) Urine RBC 12 H (0-5) /hpf Urine WBC 3 (0-5) /hpf Ur Squamous Epith Cells 4 (0-4) /hpf Hyaline Casts 7 H (0-2) /lpf Urine Mucus Rare H (None) /hpf - Radiology Data Radiology results: report reviewed, image reviewed Two-view x-ray of the chest is obtained. Report was reviewed in its entirety. Impression by Dr. Talley shows mild cardiomegaly. No active cardiopulmonary disease. No heart failure seen. No adverse change. Disposition Clinical Impression: Chest pain, Dizziness, Vomiting Disposition: ADMITTED IP TO THIS [facility] Condition: Serious Referrals: Jim Chau MD [Primary Care Provider] - 1-2 days Decision to Admit Reason: Admit from EC Decision Date: 09/17/19 Decision Time: 01:35
[2019-09-17] MEDS ORDERED: CLOPIDOGREL 75 MG TAB PO STA (02:26)
[2019-09-17] MEDS ORDERED: ASPIRIN 325 MG TAB PO STA (02:26)
[2019-09-17] MEDS ORDERED: ATORVASTATIN 80 MG TAB PO STA (02:26)
[2019-09-17] MEDS ORDERED: SODIUM POLYSTYRENE SULFONATE 15 GM/60 ML BOTTLE PO STA ×2 (02:28→08:12)
--- NOTE | 2019-09-17 02:30 | P.HPIM ---
History of Present Illness H&P Date: 09/17/19 The patient is a 49-year-old female with a PMH of type II DM, systolic CHF, chronic kidney disease, hypothyroidism, and hypertension who presented to the ED after an episode of nausea, vomiting, and chest pain. 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 She notes that the chest pain was sharp, 8 out of 10 in intensity, intermittent, nonradiating, pleuritic, with no alleviating or exacerbating features. Chest pain was associated with shortness of breath and palpitations. She reports 5 episodes of nonbloody emesis with 2-3 episodes of loose stools along with mild dizziness though denied loss of consciousness or falls. Denied fever, chills, cough, peripherally swelling, lower extremity pain, or recent travel. At time of interview, the patient reports that her chest pain had improved significantly, currently at a 3 out of 10. In the emergency room, the patient's vitals were 152/73, SpO2 98% on room air, pulse 92, afebrile at 97.9, and breathing at 17/m on presentation. Chest x-ray revealed mild cardiomegaly. EKG revealed normal sinus rhythm at 66 bpm with a borderline prolonged QTC at 461 ms. Laboratory evaluation revealed a hemoglobin of 8.6, WBC count 7.6, platelets 162, sodium 138, potassium 5.6, BUN 66, creat inine is 2.88, troponin less than 0.012, and glucose of 237. The patient is being admitted for further management of chest pain. Review of Systems Pertinent positives and negatives as discussed in HPI, a complete review of systems was performed and all other systems are negative. Past Medical History Past Medical History: Heart Failure, Diabetes Mellitus, Hypertension, Renal Disease, Thyroid Disorder Additional Past Medical History / Comment(s): IDDM type II, CKD-pt does not know stage, lower leg/pedal edema, hypothyroid. History of Any Multi-Drug Resistant Organisms: None Reported Past Surgical History: Heart Catheterization, Hysterectomy Additional Past Surgical History / Comment(s): LT THYROIDECTOMY 16 YRS AGO Past Anesthesia/Blood Transfusion Reactions: No Reported Reaction Additional Past Anesthesia/Blood Transfusion Reaction / Comment(s): Pt states with spinal for hysterectomy she "felt them cut" Past Psychological History: No Psychological Hx Reported Smoking Status: Never smoker Past Alcohol Use History: None Reported Past Drug Use History: None Reported - Past Family History Father History Unknown: Yes Additional Family Medical History / Comment(s): Pt does not know her father. Mother Family Medical History: Cancer, Deep Vein Thrombosis (DVT) Medications and Allergies Home Medications Medication Instructions Recorded Confirmed Type Aspirin EC [Ecotrin Low Dose] 81 mg PO DAILY 05/27/17 05/21/19 History Furosemide [Lasix] 40 mg PO BID 5 Days tablet 12/16/17 05/21/19 Rx Atorvastatin [Lipitor] 20 mg PO DAILY 05/21/19 05/21/19 History Insulin Glargine,Hum.rec.anlog 40 unit SQ DAILY 05/21/19 05/21/19 History [Lantus Solostar] Insulin Glargine,Hum.rec.anlog See Protocol SQ HS 05/21/19 05/21/19 History [Lantus Solostar] Metoclopramide [Reglan] 5 mg PO AC-TID 05/21/19 05/21/19 History Metolazone [Zaroxolyn] 2.5 mg PO DAILY 05/21/19 05/21/19 History glipiZIDE XL [Glucotrol XL] 10 mg PO DAILY 05/21/19 05/21/19 History hydrALAZINE HCL [Apresoline] 25 mg PO TID 05/21/19 05/21/19 History Albuterol Sulfate [Albuterol 2 puff PO Q4-6H PRN #1 inhaler 05/22/19 Rx Sulfate Hfa] Azithromycin [Zithromax] 250 mg PO DAILY #4 tab 05/22/19 Rx guaiFENesin SYRUP 100MG/5ML 200 mg PO Q6H PRN #40 ml 05/22/19 Rx [Robitussin] Allergies Allergy/AdvReac Type Severity Reaction Status Date / Time egg AdvReac Nausea & Verified 09/16/19 23:44 Vomiting & Diarrhea DIAL SOAP Allergy Rash/Hives Uncoded 09/16/19 23:44 Physical Exam Vitals: Vital Signs Temp Pulse Resp BP Pulse Ox 09/16/19 23:40 98.4 F 70 26 H 174/82 96 Intake and Output 09/16/19 09/16/19 09/17/19 14:59 22:59 06:59 Other: Weight 104.326 kg General: non toxic, no distress, appears older than stated age, morbidly obese Derm: no unusual rashes/lesions no unusual ecchymoses, warm, dry Head: atraumatic, normocephalic, symmetric Eyes: EOMI, no lid lag, anicteric sclera, pupils equal round reactive to light ENT: Nose and ears atraumatic, no thrush, no pharyngeal erythema Neck: No thyromegaly, no cervical lymphadenopathy, trachea midline, supple Mouth: no lip lesion, mucus membranes moist Cardiovascular: S1S2 reg, no murmur, positive posterior tibial pulse bilateral, no edema, capillary refill less than 2 seconds Lungs: CTA bilateral, no rhonchi, no rales , no accessory muscle use Abdominal: Obese, soft, nontender to palpation, no guarding, no appreciable organomegaly, normal bowel sounds Ext: no gross muscle atrophy, muscle strength 5 out of 5 in all 4 extremities grossly, no contractures, no calf tenderness bilaterally Neuro: CN II-XI grossly intact, light touch intact all 4 extremities, finger to nose within normal limits, Psych: Alert, oriented, appropriate affect Results CBC & Chem 7: 09/17/19 00:23 09/17/19 00:23 Labs: Abnormal Lab Results - Last 24 Hours (Table) 09/17/19 09/17/19 09/17/19 Range/Units 00:23 00:23 00:36 RBC 3.22 L (3.80-5.40) m/uL Hgb 8.6 L (11.4-16.0) gm/dL Hct 27.7 L (34.0-46.0) % RDW 16.9 H (11.5-15.5) % Lymphocytes # 0.7 L (1.0-4.8) k/uL Potassium 5.6 H (3.5-5.1) mmol/L Chloride 109 H (98-107) mmol/L Carbon Dioxide 21 L (22-30) mmol/L BUN 66 H (7-17) mg/dL Creatinine 2.88 H (0.52-1.04) mg/dL Glucose 237 H (74-99) mg/dL Urine Appearance Cloudy H (Clear) Urine Protein 3+ H (Negative) Urine Glucose (UA) 3+ H (Negative) Urine Blood Small H (Negative) Urine RBC 12 H (0-5) /hpf Hyaline Casts 7 H (0-2) /lpf Urine Mucus Rare H (None) /hpf Assessment and Plan Plan: Chest pain, rule out ACS -Cardiac monitoring -Trend troponin -Consult cardiology -Continue with aspirin, Lipitor, Plavix -Check D-dimer Hyperkalemia, in setting of CKD -Administer Kayexalate and monitor BMP Prolonged QT Interval -Avoid any agents that may prolong it further Normocytic anemia, at baseline -Likely secondary to chronic kidney disease Chronic kidney disease -At baseline Chronic conditions: Type II DM, systolic CHF, hypertension, hyperthyroidism -Lispro insulin sliding scale with blood glucose monitoring -Continue with 80% of home basal insulin dose -Hold oral hypoglycemics -Check A1c -Continue with remaining home medications DVT prophylaxis -Heparin subq The patient is admitted with an anticipated less than 2 midnight stay for evaluation of chest pain CODE STATUS: Full Code Discussed with: Patient Anticipated discharge date: 1-[address]: Home A total of 35 minutes was spent on the care of this complex patient more than 50% of the time was spent in counseling and care coordination.
[2019-09-17 06:30] LABS: Anisocytosis Slight; HCT 25.2 % (34.0-46.0); HGB 7.9 gm/dL (11.4-16.0); Hypochromasia Marked; MCH 27.1 pg (25.0-35.0); MCHC 31.4 g/dL (31.0-37.0); MCV 86.2 fL (80.0-100.0); Mean Platelet Volume 8.8; Platelet Count 141 k/uL (150-450); RBC 2.93 m/uL (3.80-5.40); RDW 17.5 % (11.5-15.5); WBC 6.8 k/uL (3.8-10.6)
[2019-09-17 06:38] LABS: Calcium 8.9 mg/dL (8.4-10.2)
[2019-09-17 06:52] LABS: Glucose,Whole Blood 190 mg/dL (75-99)
[2019-09-17] MEDS: INSULIN ASPART (NovoLOG) 100 UNIT/ML VIAL SQ SCH ×3 (06:55→17:01)
[2019-09-17] MEDS ORDERED: DEXTROSE 50% SYRINGE 50 ML IVP STA (08:11)
[2019-09-17] MEDS ORDERED: INSULIN REGULAR 100 UNIT/ML VIAL IV ONE (08:30)
[2019-09-17] MEDS ORDERED: CALCIUM GLUCONATE 1 GM in SODIUM CHLORIDE 0.9% 100 ML IVPB ONE (08:30)
[2019-09-17] MEDS ORDERED: ASPIRIN 81 MG PO SCH (09:00)
[2019-09-17] MEDS ORDERED: CLOPIDOGREL 75 MG TAB PO SCH (09:00)
[2019-09-17] MEDS ORDERED: hydrALAZINE HCL 25 MG TAB PO SCH (09:00)
[2019-09-17] MEDS: HEPARIN SODIUM,PORCINE 5,000 UNIT/ML 1 ML VIAL SQ SCH ×3 (09:03→23:57)
[2019-09-17] MEDS ORDERED: ONDANSETRON 4 MG/2 ML VIAL IVP PRN (09:48)
--- NOTE | 2019-09-17 09:51 | P.PN ---
Subjective Progress Note Date: 09/17/19 Patient denies any chest pain this morning. She continued to vomit and reported bright red blood in her vomitus. She denies alcohol or NSAIDs use at home. She denies abdominal pain this morning. Objective - Vital Signs Vital signs: Vital Signs Temp 97.7 F 09/17/19 08:39 Pulse 70 09/17/19 08:39 Resp 18 09/17/19 08:39 BP 172/85 09/17/19 08:39 Pulse Ox 98 09/17/19 08:39 Intake & Output 09/16/19 09/17/19 09/17/19 18:59 06:59 18:59 Weight 104.326 kg 104.78 kg Other: Voiding Method Toilet Toilet # Voids 1 - Labs CBC & Chem 7: 09/17/19 05:59 09/17/19 05:59 Labs: Abnormal Lab Results - Last 24 Hours (Table) 09/17/19 09/17/19 09/17/19 Range/Units 00:23 00:23 00:36 RBC 3.22 L (3.80-5.40) m/uL Hgb 8.6 L (11.4-16.0) gm/dL Hct 27.7 L (34.0-46.0) % RDW 16.9 H (11.5-15.5) % Plt Count (150-450) k/uL Lymphocytes # 0.7 L (1.0-4.8) k/uL Potassium 5.6 H (3.5-5.1) mmol/L Chloride 109 H (98-107) mmol/L Carbon Dioxide 21 L (22-30) mmol/L BUN 66 H (7-17) mg/dL Creatinine 2.88 H (0.52-1.04) mg/dL Glucose 237 H (74-99) mg/dL POC Glucose (mg/dL) (75-99) mg/dL Urine Appearance Cloudy H (Clear) Urine Protein 3+ H (Negative) Urine Glucose (UA) 3+ H (Negative) Urine Blood Small H (Negative) Urine RBC 12 H (0-5) /hpf Hyaline Casts 7 H (0-2) /lpf Urine Mucus Rare H (None) /hpf 09/17/19 09/17/19 09/17/19 Range/Units 05:59 05:59 06:50 RBC 2.93 L (3.80-5.40) m/uL Hgb 7.9 L (11.4-16.0) gm/dL Hct 25.2 L (34.0-46.0) % RDW 17.5 H (11.5-15.5) % Plt Count 141 L (150-450) k/uL Lymphocytes # (1.0-4.8) k/uL Potassium 6.0 H (3.5-5.1) mmol/L Chloride 112 H (98-107) mmol/L Carbon Dioxide 20 L (22-30) mmol/L BUN 68 H (7-17) mg/dL Creatinine 2.76 H (0.52-1.04) mg/dL Glucose 186 H (74-99) mg/dL POC Glucose (mg/dL) 190 H (75-99) mg/dL Urine Appearance (Clear) Urine Protein (Negative) Urine Glucose (UA) (Negative) Urine Blood (Negative) Urine RBC (0-5) /hpf Hyaline Casts (0-2) /lpf Urine Mucus (None) /hpf Assessment and Plan Assessment: 1. Chest pain, 12-lead EKG showed no acute ischemic changes. Serial troponin negative 3 sets. Awaiting cardiology evaluation. D-dimer was normal. Discontinue Plavix. 2. Nausea and vomiting with bloody emesis, may be attributed to acute gastritis. No known liver cirrhosis or history of gastric ulcer. Continue Protonix 40 mg daily. Consult GI for further evaluation. 3. Acute blood loss anemia, most likely blood loss, on chronic anemia of chronic disease: We will repeat CBC in the morning. Transfuse as needed for hemoglobin less than 7. 4. Hyperkalemia, did not improve with 1 dose of Kayexalate last night. I would order IV insulin, calcium gluconate, and another dose of Kayexalate. Repeat potassium ordered 5. Type 2 diabetes, on Lantus 25 units twice a day at home. Currently nothing by mouth. Continue Levemir 5 units twice daily plus sliding scale for now. 6. Essential hypertension: Blood pressure not well controlled. Resume home dose of hydralazine and metoprolol and continue to monitor closely.
--- NOTE | 2019-09-17 09:55 | P.CRDCN ---
History of Present Illness History of present illness: HISTORY OF PRESENTING ILLNESS This is a pleasant 49-year-old female past medical history significant for nonischemic cardiomyopathy, chronic systolic heart failure, diabetes mellit us, hypertension, chronic kidney disease and obesity. She follows in the office with Dr. Titus. She underwent cardiac catheterization in 2018 revealing normal coronary arteries with impaired LV systolic function. We have been asked to see in consultation for chest pain. She states yesterday while at work she had an acute onset of feeling lightheaded with associated nausea and then persistent v omiting. She states she vomited multiple times until it was nothing left for her to vomit. She continued to have dry heaves. This morning she did vomit one time and there was bright red blood noted in her sputum. She states throughout this episode she felt intermittent episodes of sharp discomfort in the left anterior chest. There is no radiation down the arm, into the back, into the neck or the jaw. She is currently chest pain-free. She denies any associated shortness of breath or palpitations. She had no loss of consciousness. Her dizziness has improved. She states her primary care physician recently increased her hydralazine secondary to persistent uncontrolled hypertension. DIAGNOSTICS EKG reveals sinus mechanism heart rate of [address] or T wave abnormalities noted. Chest xray today for an acute cardiopulmonary process. Laboratory reviewed, WBC 6.8, hemoglobin on admission 8.6 repeat this morning 7.9, platelets 141, d-dimer 0.43, sodium 138, potassium on admission 5. 6 repeat today 6.0, creatinine 2.76 with a GFR of 20, magnesium 2.3, cardiac enzymes negative 3. Current cardiac medications include atorvastatin 20 mg at bedtime, Lasix 40 mg every other day, hydralazine 50 mg 3 times a day and Lopressor 50 mg twice a day. She is not currently on an angelic/arm secondary to chronic kidney disease. April 2019 echocardiogram revealed impaired LV systolic function with ejection fraction 40-45%, tricuspid regurgitation and moderate pulmonary hypertension wi RVSP of 53 mmHg REVIEW OF SYSTEMS At the time of my exam: CONSTITUTIONAL: Denies fever or chills. CARDIOVASCULAR: Denies chest pain, shortness of breath, orthopnea, PND or palpitations. RESPIRATORY: Denies cough. GASTROINTESTINAL: Denies abdominal pain, diarrhea, constipation, nausea or vomiting. MUSCULOSKELETAL: Denies myalgias. NEUROLOGIC: Denies numbness, tingling or weakness. ENDOCRINE: Denies fatigue, weight change, polydipsia or polyurina. GENITOURINARY: Denies burning, hematuria or urgency with micturation. HEMATOLOGIC: Denies history of anemia or bleeding. PHYSICAL EXAMINATION Blood pressure 172/85 heart rate 68 afebrile and maintaining oxygen saturation on room air. CONSTITUTIONAL: No apparent distress. HEENT: Head is normocephalic. Pupils are equal, round. Sclerae anicteric. Mucous membranes of the mouth are moist. No JVD. No carotid bruit. CHEST EXAMINATION: Lungs are clear to auscultation. No chest wall tenderness is noted on palpation or with deep breathing. HEART EXAMINATION: Regular rate and rhythm. S1, S2 heard. No murmurs, gallops or rub. ABDOMEN: Soft, nontender. Positive bowel sounds. EXTREMITIES: 2+ peripheral pulses, no lower extremity edema and no calf tenderness. NEUROLOGIC EXAMINATION: Patient is awake, alert and oriented x3. ASSESSMENT Chest pain and dizziness associated with nausea and vomiting. An acute coronary event has been ruled out. Possible acute GI bleeding with bright red blood noted in the basin at her bedside. Hyperkalemia Anemia Chronic kidney disease Nonischemic cardiomyopathy Chronic systolic heart failure, clinically euvolemic Hypertension Diabetes mellitus Obesity, BMI 39 PLAN An acute coronary event has been ruled out. EKG evidence of ischemia and negative cardiac enzymes. Check for orthostatic changes. Plavix and aspirin initiated per primary care team, would recommend discontinuation she had a normal cardiac catheterization 2018 and has evidence of GI bleeding with associated anemia. Consider GI evaluation. Kayexalate for hyperkalemia. Ongoing medical management and evaluation. Thank you kindly for this consultation. Nurse Practitioner note has been reviewed, I agree with a documented findings and plan of care. Patient was seen and examined. Past Medical History Past Medical History: Heart Failure, Diabetes Mellitus, Hypertension, Renal Disease, Thyroid Disorder Additional Past Medical History / Comment(s): IDDM type II, CKD-pt does not know stage, lower leg/pedal edema, hypothyroid. History of Any Multi-Drug Resistant Organisms: None Reported Past Surgical History: Heart Catheterization, Hysterectomy Additional Past Surgical History / Comment(s): LT THYROIDECTOMY 16 YRS AGO Past Anesthesia/Blood Transfusion Reactions: No Reported Reaction Additional Past Anesthesia/Blood Transfusion Reaction / Comment(s): Pt states with spinal for hysterectomy she "felt them cut" Past Psychological History: No Psychological Hx Reported Smoking Status: Never smoker Past Alcohol Use History: None Reported Past Drug Use History: None Reported - Past Family History Father History Unknown: Yes Additional Family Medical History / Comment(s): Pt does not know her father. Mother Family Medical History: Cancer, Deep Vein Thrombosis (DVT) Medications and Allergies Home Medications Medication Instructions Recorded Confirmed Type Atorvastatin [Lipitor] 20 mg PO HS 05/21/19 09/17/19 History Insulin Glargine,Hum.rec.anlog 25 unit SQ BID 05/21/19 09/17/19 History [Lantus Solostar] Insulin Glargine,Hum.rec.anlog See Protocol SQ BID 05/21/19 09/17/19 History [Lantus Solostar] Albuterol Sulfate [Albuterol 2 puff INHALATION RT-Q4H PRN 09/17/19 09/17/19 History Sulfate Hfa] Calcium Acetate [Phoslo] 667 mg PO BID-W/MEALS 09/17/19 09/17/19 History Ferrous Sulfate [Feosol] 325 mg PO BID-W/MEALS 09/17/19 09/17/19 History Fluticasone Propion/Salmeterol 1 puff INHALATION RT-DAILY 09/17/19 09/17/19 History [Fluticasone-Salmeterol 100-50] Furosemide [Lasix] 40 mg PO Q48H 09/17/19 09/17/19 History Ipratropium-Albuterol Nebulize 3 ml INHALATION RT-QID PRN 09/17/19 09/17/19 History [Duoneb 0.5 mg-3 mg/3 ml Soln] Metoprolol Tartrate [Lopressor] 50 mg PO BID 09/17/19 09/17/19 History Ondansetron [Zofran] 4 mg PO Q6HR PRN 09/17/19 09/17/19 History hydrALAZINE HCL [Apresoline] 50 mg PO TID 09/17/19 09/17/19 History Allergies Allergy/AdvReac Type Severity Reaction Status Date / Time egg Allergy Nausea & Verified 09/17/19 08:14 Vomiting & Diarrhea DIAL SOAP Allergy Rash/Hives Uncoded 09/16/19 23:44 Physical Exam Vitals: Vital Signs Temp Pulse Pulse Resp BP BP Pulse Ox 09/17/19 03:00 97.8 F 70 17 168/80 93 L 09/17/19 02:30 69 24 180/93 96 09/16/19 23:40 98.4 F 70 26 H 174/82 96 Intake and Output 09/16/19 09/17/19 09/17/19 22:59 06:59 14:59 Other: Voiding Method Toilet # Voids 1 Weight 104.326 kg Results 09/17/19 05:59 09/17/19 05:59 Cardiac Enzymes 09/17/19 09/17/19 09/17/19 Range/Units 00:23 00:23 02:54 AST 25 (14-36) U/L Troponin I <0.012 <0.012 (0.000-0.034) ng/mL 09/17/19 Range/Units 05:59 AST (14-36) U/L Troponin I <0.012 (0.000-0.034) ng/mL CBC 09/17/19 09/17/19 Range/Units 00:23 05:59 WBC 7.6 6.8 (3.8-10.6) k/uL RBC 3.22 L 2.93 L (3.80-5.40) m/uL Hgb 8.6 L 7.9 L (11.4-16.0) gm/dL Hct 27.7 L 25.2 L (34.0-46.0) % Plt Count 162 141 L (150-450) k/uL Comprehensive Metabolic Panel 09/17/19 09/17/19 Range/Units 00:23 05:59 Sodium 138 138 (137-145) mmol/L Potassium 5.6 H 6.0 H (3.5-5.1) mmol/L Chloride 109 H 112 H (98-107) mmol/L Carbon Dioxide 21 L 20 L (22-30) mmol/L BUN 66 H 68 H (7-17) mg/dL Creatinine 2.88 H 2.76 H (0.52-1.04) mg/dL Glucose 237 H 186 H (74-99) mg/dL Calcium 9.5 8.9 (8.4-10.2) mg/dL AST 25 (14-36) U/L ALT 19 (4-34) U/L Alkaline Phosphatase 125 (38-126) U/L Total Protein 6.3 (6.3-8.2) g/dL Albumin 3.6 (3.5-5.0) g/dL Current Medications Generic Name Dose Route Start Last Admin Trade Name Freq PRN Reason Stop Dose Admin Aspirin 81 mg 09/17/19 09:00 Aspirin PO DAILY [facility] Atorvastatin Calcium 80 mg 09/17/19 21:00 Lipitor PO HS [facility] Clopidogrel Bisulfate 75 mg 09/17/19 09:00 Plavix PO DAILY [facility] Heparin Sodium (Porcine) 5,000 unit 09/17/19 08:00 Heparin SQ Q8HR [facility] Insulin Aspart 0 unit 09/17/19 07:30 09/17/19 06:55 Novolog SQ 3 unit AC-TID [facility] Administration Protocol Naloxone HCl 0.2 mg 09/17/19 01:35 Narcan IV Q2M PRN Opioid Reversal Intake and Output 09/16/19 09/17/19 09/17/19 22:59 06:59 14:59 Other: Voiding Method Toilet # Voids 1 Weight 104.326 kg 09/17/19 05:59 09/17/19 05:59
[2019-09-17] MEDS: PANTOPRAZOLE 40 MG/10 ML VIAL IVP SCH (10:28)
[2019-09-17 11:21] LABS: Glucose,Whole Blood 82 mg/dL (75-99)
[2019-09-17 11:52] LABS: Hemoglobin A1C 9.6 % (4.0-6.0)
[2019-09-17 13:51] LABS: Reticulocyte % 4.3 % (0.5-2.0)
[2019-09-17 13:59] LABS: Potassium 5.1 mmol/L (3.5-5.1)
--- NOTE | 2019-09-17 15:55 | CONS ---
CONSULTATION DATE OF DICTATION: 09/17/2019 REASON FOR CONSULTATION: Nausea, vomiting and diarrhea. HISTORY OF PRESENT ILLNESS: The patient is a 49-year-old pleasant white female admitted to the hospital late last night when she presented with a severe episode of nausea, vomiting and diarrhea that started yesterday around 10 a.m. She had at least 7 episodes of emesis followed by loose watery bowel movements which were dark in color. She also had severe chest pain as well as epigastric discomfort and lower abdominal pain. These symptoms continued to progressively get worse and hence she came to the emergency room last night and was subsequently admitted to the hospital for further evaluation. She denies any fever, chills, night sweats. Denies any rectal bleeding. She never had these symptoms in the past. This morning she is feeling much better; had only one bowel movement, and the nausea and vomiting have completely subsided. PAST MEDICAL HISTORY: Her past medical history is significant for diabetes mellitus, hypertension, chronic kidney disease, hypothyroidism, congestive heart failure. PAST SURGICAL HISTORY: Hysterectomy, cardiac catheterization, thyroidectomy. SOCIAL HISTORY: No smoking. No alcohol use. FAMILY HISTORY: Mother had DVT. MEDICATIONS: Medications at home include aspirin, Lasix, Lipitor, insulin, Reglan, Zaroxolyn, Glucotrol, hydralazine, albuterol, Zithromax, Robitussin. ALLERGIES: EGGS and SOAP. REVIEW OF SYSTEMS: CARDIOPULMONARY: She has some chest pain but no shortness of breath. GENITOURINARY: No dysuria or hematuria. MUSCULOSKELETAL: Unremarkable. SKIN: Unremarkable. ENDOCRINE: History of diabetes mellitus. PSYCHIATRIC: Unremarkable. NEUROLOGY: Unremarkable. ENT/VISION: Unremarkable. CONSTITUTIONAL: No recent weight loss. No fever, chills, night sweats. PHYSICAL EXAMINATION: Blood pressure 159/85, pulse rate 68, temperature 97.7. HEENT examination unremarkable. Conjunctivae pink. Sclerae anicteric. Oral cavity no lesions. NECK: No JVD or lymph node enlargement. CHEST: Clear to auscultation. HEART: Regular rate and rhythm. ABDOMEN: Soft. It was non-tender, non-distended. Mild tenderness in the left lower quadrant area. Rest of the abdomen was benign, obese. EXTREMITIES: No pedal edema. SKIN: No rashes. NEUROLOGIC: Alert and oriented x3. No focal deficits. LABS: Labs done at the time of admission to the hospital showed WBC 6.8, hemoglobin 7.9, platelets 141. BUN and creatinine are 68 and 2.76, respectively. ALT, AST, T-bilirubin and alkaline phosphatase are within normal limits. Lipase normal. MCV 86. IMPRESSION: 1. Acute onset of nausea, vomiting and diarrhea that started yesterday morning at 10 a.m. She had several episodes of nonbloody emesis followed by nonbloody diarrhea. This morning her symptoms are significantly improved. Stool studies were requested but could not be done because the patient has not had any further episodes of diarrhea since being in the hospital. Most likely we are dealing with a viral gastroenteritis which appears to be self-limited and gradually improving. 2. Atypical chest pain, resolved. 3. Normocytic anemia. Patient's baseline hemoglobin for the last year was around 9 g/dL. Clinically no evidence of active bleeding. It is likely that the anemia is multifactorial in etiology. Probably she has a component of anemia of chronic disease from underlying chronic kidney disease, but of course occult blood loss cannot be excluded. 4. Hyperkalemia/chronic kidney disease. 5. Type 2 diabetes mellitus. 6. Hypertension. 7. Hyperlipidemia. RECOMMENDATIONS: 1. Symptomatic and supportive care. 2. Antiemetics as needed. 3. Advance diet as tolerated. 4. Stool studies if she has recurrent diarrhea. 5. Will obtain stool for occult blood and obtain iron indices to see if we are dealing with iron deficiency anemia. 6. No plans for any endoscopic intervention at the present time. 7. If her symptoms improve, she can be discharged home tomorrow with outpatient followup. Thank you for this consultation. MMODL / TABN: [id number] /
[2019-09-17] MEDS: hydrALAZINE HCL 50 MG TAB PO SCH ×2 (16:01→21:48)
[2019-09-17 16:53] LABS: Glucose,Whole Blood 108 mg/dL (75-99)
[2019-09-17 19:41] LABS: Glucose,Whole Blood 164 mg/dL (75-99)
[2019-09-17] MEDS: METOPROLOL TARTRATE 50 MG TAB PO SCH (19:59)
[2019-09-17] MEDS: ATORVASTATIN 80 MG TAB PO SCH (19:59)
[2019-09-17 20:44] LABS: % Iron Saturation 12.98 (12.00-45.00)
[2019-09-17 20:52] LABS: Ferritin 130.3 ng/mL (10.0-291.0); Folate, Serum 6.9 ng/mL
[2019-09-17] MEDS ORDERED: INSULIN DETEMIR (LEVEMIR) 100 UNIT/ML SYR SQ SCH (21:00)
[2019-09-18 06:06] LABS: Anisocytosis Slight; Basophils % (A) 1 %; Eosinophils # (A) 0.2 k/uL (0-0.7); Eosinophils % (A) 3 %; HCT 25.6 % (34.0-46.0); HGB 7.9 gm/dL (11.4-16.0); Hypochromasia Marked; Lymphocytes # (A) 0.9 k/uL (1.0-4.8); Lymphocytes % (A) 15 %; MCH 27.3 pg (25.0-35.0); Mean Platelet Volume 9.7; Monocytes # (A) 0.3 k/uL (0-1.0); Monocytes % (A) 4 %; Neutrophils # (A) 4.8 k/uL (1.3-7.7); Neutrophils % (A) 77 %; Platelet Count 145 k/uL (150-450); RBC 2.91 m/uL (3.80-5.40); WBC 6.2 k/uL (3.8-10.6)
[2019-09-18 06:18] LABS: Calcium 8.6 mg/dL (8.4-10.2); Magnesium 2.2 mg/dL (1.6-2.3); Potassium 5.8 mmol/L (3.5-5.1)
[2019-09-18 06:37] LABS: Glucose,Whole Blood 304 mg/dL (75-99)
[2019-09-18] MEDS: INSULIN ASPART (NovoLOG) 100 UNIT/ML VIAL SQ SCH ×3 (06:50→16:44)
[2019-09-18] MEDS ORDERED: INSULIN DETEMIR (LEVEMIR) 100 UNIT/ML SYR SQ SCH ×2 (07:00→21:00)
[2019-09-18] MEDS ORDERED: INSULIN DETEMIR (LEVEMIR) 100 UNIT/ML SYR SQ ONE (08:00)
[2019-09-18] MEDS: HEPARIN SODIUM,PORCINE 5,000 UNIT/ML 1 ML VIAL SQ SCH ×2 (08:19→15:47)
[2019-09-18] MEDS: hydrALAZINE HCL 50 MG TAB PO SCH ×3 (08:19→21:24)
[2019-09-18] MEDS: METOPROLOL TARTRATE 50 MG TAB PO SCH ×2 (08:19→21:24)
[2019-09-18] MEDS: PANTOPRAZOLE 40 MG/10 ML VIAL IVP SCH (08:29)
[2019-09-18 09:43] LABS: Glucose,Whole Blood 296 mg/dL (75-99)
[2019-09-18 09:54] VITALS: BMI 39.6
[2019-09-18] MEDS ORDERED: INSULIN REGULAR 100 UNIT/ML VIAL IV ONE (10:30)
--- NOTE | 2019-09-18 11:09 | P.PN ---
Subjective HISTORY OF PRESENTING ILLNESS This is a pleasant 49-year-old female past medical history significant for nonischemic cardiomyopathy, chronic systolic heart failure, diabetes mellitus, hypertension, chronic kidney disease and obesity. She follows in the office with Dr. Titus. She underwent cardiac catheterization in 2018 revealing normal coronary arteries with impaired LV systolic function. She is seen and examined sitting up on the edge of the bed in no acute distress. She denies any further symptoms of chest pain, dizziness, nausea or vomiting. Breathing has been stable. She states overall she is feeling back to normal. Blood pressure 153/81 heart rate 69 afebrile maintaining oxygen saturation on room air. Negative for orthostatic changes. Laboratory data reviewed, WBC 6.2, hemoglobin 7.9, platelets 145, sodium 139, potassium 5.8, creatinine 3.4, magnesium 2.2. She has been seen by GI and they do not plan for endoscopy at this time. PHYSICAL EXAMINATION CONSTITUTIONAL: No apparent distress. HEENT: Head is normocephalic. Pupils are equal, round. Sclerae anicteric. Mucous membranes of the mouth are moist. No JVD. No carotid bruit. CHEST EXAMINATION: Lungs are clear to auscultation. No chest wall tenderness is noted on palpation or with deep breathing. HEART EXAMINATION: Regular rate and rhythm. S1, S2 heard. No murmurs, gallops or rub. EXTREMITIES: 2+ peripheral pulses, no lower extremity edema and no calf tenderness. ASSESSMENT Chest pain and dizziness associated with nausea and vomiting. An acute coronary event has been ruled out. Possible acute GI bleeding with bright red blood noted in the basin at her bedside. Hyperkalemia Anemia Acute on chronic kidney disease Nonischemic cardiomyopathy Chronic systolic heart failure, clinically euvolemic Hypertension Diabetes mellitus Obesity, BMI 39 PLAN Ongoing medical management. Continue metoprolol 50 mg twice a day, hydralazine 50 mg 3 times a day and atorvastatin 80 mg daily as previously ordered. Nurse Practitioner note has been reviewed, I agree with a documented findings and plan of care. Patient was seen and examined. Objective - Vital Signs Vital signs: Vital Signs Temp 97.7 F 09/18/19 08:56 Pulse 69 09/18/19 08:56 Resp 20 09/18/19 08:56 BP 153/81 09/18/19 08:56 Pulse Ox 91 L 09/18/19 08:56 Intake & Output 09/17/19 09/18/19 09/18/19 18:59 06:59 18:59 Intake Total 717 Balance 717 Weight 104.78 kg 104.78 kg Intake: Oral 717 Other: Voiding Method Toilet Toilet Toilet # Voids 1 1 - Labs CBC & Chem 7: 09/18/19 05:37 09/18/19 05:37 Labs: Abnormal Lab Results - Last 24 Hours (Table) 09/17/19 09/17/19 09/17/19 Range/Units 05:59 13:17 13:17 RBC (3.80-5.40) m/uL Hgb (11.4-16.0) gm/dL Hct (34.0-46.0) % RDW (11.5-15.5) % Plt Count (150-450) k/uL Lymphocytes # (1.0-4.8) k/uL Retic Count 4.3 H (0.5-2.0) % Potassium (3.5-5.1) mmol/L Chloride (98-107) mmol/L Carbon Dioxide (22-30) mmol/L BUN (7-17) mg/dL Creatinine (0.52-1.04) mg/dL Glucose (74-99) mg/dL POC Glucose (mg/dL) (75-99) mg/dL Hemoglobin A1c 9.6 H (4.0-6.0) % Iron 37 L (50-170) ug/dL 09/17/19 09/17/19 09/18/19 Range/Units 16:51 19:38 05:37 RBC 2.91 L (3.80-5.40) m/uL Hgb 7.9 L (11.4-16.0) gm/dL Hct 25.6 L (34.0-46.0) % RDW 17.0 H (11.5-15.5) % Plt Count 145 L (150-450) k/uL Lymphocytes # 0.9 L (1.0-4.8) k/uL Retic Count (0.5-2.0) % Potassium (3.5-5.1) mmol/L Chloride (98-107) mmol/L Carbon Dioxide (22-30) mmol/L BUN (7-17) mg/dL Creatinine (0.52-1.04) mg/dL Glucose (74-99) mg/dL POC Glucose (mg/dL) 108 H 164 H (75-99) mg/dL Hemoglobin A1c (4.0-6.0) % Iron (50-170) ug/dL 09/18/19 09/18/19 09/18/19 Range/Units 05:37 06:35 09:41 RBC (3.80-5.40) m/uL Hgb (11.4-16.0) gm/dL Hct (34.0-46.0) % RDW (11.5-15.5) % Plt Count (150-450) k/uL Lymphocytes # (1.0-4.8) k/uL Retic Count (0.5-2.0) % Potassium 5.8 H (3.5-5.1) mmol/L Chloride 113 H (98-107) mmol/L Carbon Dioxide 21 L (22-30) mmol/L BUN 68 H (7-17) mg/dL Creatinine 3.40 H (0.52-1.04) mg/dL Glucose 249 H (74-99) mg/dL POC Glucose (mg/dL) 304 H 296 H (75-99) mg/dL Hemoglobin A1c (4.0-6.0) % Iron (50-170) ug/dL
[2019-09-18 11:37] LABS: Glucose,Whole Blood 208 mg/dL (75-99)
[2019-09-18] MEDS ORDERED: DARBEPOETIN ALFA 60 MCG/0.3 ML SYRINGE SQ SCH (13:00)
--- NOTE | 2019-09-18 13:23 | P.PN ---
Subjective Progress Note Date: 09/18/19 Patient is doing well this morning. No complaints. Potassium level still elevated at 5.8. Objective - Vital Signs Vital signs: Vital Signs Temp 97.7 F 09/18/19 08:56 Pulse 69 09/18/19 08:56 Resp 20 09/18/19 08:56 BP 153/81 09/18/19 08:56 Pulse Ox 91 L 09/18/19 08:56 Intake & Output 09/17/19 09/18/19 09/18/19 18:59 06:59 18:59 Intake Total 717 240 Balance 717 240 Weight 104.78 kg 104.78 kg Intake: Oral 717 240 Other: Voiding Method Toilet Toilet Toilet # Voids 1 1 - Exam General: The patient is awake and alert, in no distress Eye: there is normal conjunctiva bilaterally. Neck: The neck is supple, there is no JVD. Cardiovascular: Normal S1-S2, no S3-S4, no murmurs. Respiratory: Lungs clear to auscultation bilaterally Gastrointestinal: Abdomen is soft, nontender Musculoskeletal: There is no pedal edema. Neurological:. Speech is normal. Skin: Skin is warm and dry - Labs CBC & Chem 7: 09/18/19 05:37 09/18/19 05:37 Labs: Abnormal Lab Results - Last 24 Hours (Table) 09/17/19 09/17/19 09/17/19 Range/Units 13:17 13:17 16:51 RBC (3.80-5.40) m/uL Hgb (11.4-16.0) gm/dL Hct (34.0-46.0) % RDW (11.5-15.5) % Plt Count (150-450) k/uL Lymphocytes # (1.0-4.8) k/uL Retic Count 4.3 H (0.5-2.0) % Potassium (3.5-5.1) mmol/L Chloride (98-107) mmol/L Carbon Dioxide (22-30) mmol/L BUN (7-17) mg/dL Creatinine (0.52-1.04) mg/dL Glucose (74-99) mg/dL POC Glucose (mg/dL) 108 H (75-99) mg/dL Iron 37 L (50-170) ug/dL 09/17/19 09/18/19 09/18/19 Range/Units 19:38 05:37 05:37 RBC 2.91 L (3.80-5.40) m/uL Hgb 7.9 L (11.4-16.0) gm/dL Hct 25.6 L (34.0-46.0) % RDW 17.0 H (11.5-15.5) % Plt Count 145 L (150-450) k/uL Lymphocytes # 0.9 L (1.0-4.8) k/uL Retic Count (0.5-2.0) % Potassium 5.8 H (3.5-5.1) mmol/L Chloride 113 H (98-107) mmol/L Carbon Dioxide 21 L (22-30) mmol/L BUN 68 H (7-17) mg/dL Creatinine 3.40 H (0.52-1.04) mg/dL Glucose 249 H (74-99) mg/dL POC Glucose (mg/dL) 164 H (75-99) mg/dL Iron (50-170) ug/dL 09/18/19 09/18/19 09/18/19 Range/Units 06:35 09:41 11:35 RBC (3.80-5.40) m/uL Hgb (11.4-16.0) gm/dL Hct (34.0-46.0) % RDW (11.5-15.5) % Plt Count (150-450) k/uL Lymphocytes # (1.0-4.8) k/uL Retic Count (0.5-2.0) % Potassium (3.5-5.1) mmol/L Chloride (98-107) mmol/L Carbon Dioxide (22-30) mmol/L BUN (7-17) mg/dL Creatinine (0.52-1.04) mg/dL Glucose (74-99) mg/dL POC Glucose (mg/dL) 304 H 296 H 208 H (75-99) mg/dL Iron (50-170) ug/dL Assessment and Plan Assessment: 1. Chest pain, 12-lead EKG showed no acute ischemic changes. Serial troponin negative 3 sets. Awaiting cardiology consult with no further testing recommended at this time. D-dimer was normal. 2. Nausea and vomiting with bloody emesis: Now resolved, may be attributed to acute gastritis. No known liver cirrhosis or history of gastric ulcer. Continue Protonix 40 mg daily. Seen and evaluated by GI, appreciate recommendation 3. Acute blood loss anemia, most likely blood loss, on chronic anemia of chronic disease: Stool Hemoccult was negative. Aranesp ordered by nephrology 4. Hyperkalemia, did not improve with IV insulin, calcium gluconate, and another dose of Kayexalate. Seen by nephrology, appreciate recommendations. Another dose of IV insulin given today. 5. Type 2 diabetes, on Lantus 25 units twice a day at home. Currently on Levemir 10 units twice daily plus sliding scale 6. Essential hypertension: Blood pressure within acceptable range 7. Acute kidney injury on stage IIIB chronic kidney disease, kidney ultrasound ordered. Repeat lab work in the morning. Anticipate discharge home tomorrow
[2019-09-18 14:15] LABS: Potassium 5.6 mmol/L (3.5-5.1)
--- NOTE | 2019-09-18 14:25 | CONS ---
CONSULTATION REASON FOR CONSULT: Renal failure. HISTORY OF PRESENT ILLNESS: Patient is a 49-year-old female with history of diabetes, CHF, hypertension who was admitted to the hospital with complaints of nausea and vomiting and dizziness as well as chest pain. The patient admitted to having had diarrhea as well. This has currently improved. Clostridium difficile toxin is negative. Patient admitted to having being told she has weak kidney function, but has not seen a detective and intelligence analyst previously. Her serum creatinine was 2.8 on initial admission. It is up to 3.4 now. Review of previous labs shows a creatinine of 2.5-2.7 in July and April of 2019 and a creatinine of 2 in September of 2018. The patient was not on any nonsteroidal anti-inflammatory agents prior to admission. Her blood pressures have been on the lower side but not significantly low, mostly on the higher side. The patient has been voiding. She was maintained on IV fluids, currently not on any further fluids. Patient's potassium is also elevated with potassium of 5.8 this morning, it had been 6 yesterday as well. PAST MEDICAL HISTORY: Hypertension, type 2 diabetes, gastroesophageal reflux disease, dyslipidemia, chronic kidney disease as noted on previous labs, appears to be stage III to stage IV most recently staying at about stage IV with creatinine around 2 mg/dL. PAST SURGICAL HISTORY: Cardiac catheterization, hysterectomy, left thyroidectomy. SOCIAL HISTORY: Negative for smoking, drug abuse or alcohol abuse. MEDICATIONS: Medications at home prior to admission include Lipitor, insulin, albuterol, PhosLo, iron, Lasix Lopressor, Zofran and hydralazine. ALLERGIES: INCLUDE EGG AND DIAL SOAP. REVIEW OF SYSTEMS: As per HPI. Other systems negative. PHYSICAL EXAMINATION: Patient is currently comfortable, awake, not in any acute distress. Alert, oriented x3. Blood pressure was 111/63 and then 153/81 recently, heart rate 69 per minute, patient is afebrile. Examination of the heart S1, S2. Examination of the lungs, bilateral breath sounds are heard. Abdomen is soft, nontender. Examination of lower extremities shows no significant edema. INSTRUMENT TECHNICIAN exam grossly intact. LAB: Show sodium of 139, potassium 5.8, chloride 113, CO2 is 21, BUN 68, creatinine 3.4, hemoglobin 7.9 g/dL. Stool for occult blood was negative. ASSESSMENT: 1. Acute kidney injury most likely acute tubular necrosis, although no significant hypotension noted. Rule out urine retention. I will check ultrasound of the kidneys. Chest x-ray did not show significant congestive heart failure. If there is no evidence of obstruction, I will add gentle IV hydration. Acute kidney injury could also have been exacerbated by the anemia with hemoglobin at 7.9 g/dL. 2. Hyperkalemia associated with acute kidney injury. Rule out underlying gastrointestinal bleed. Avoid NSAIDs. 3. Chronic kidney disease, mineral bone disorder maintained on PhosLo prior to admission. Check phosphorus level from this admission. 4. Type 2 diabetes, maintained on insulin. 5. Chronic kidney disease stage 4 from diabetic nephropathy as UA shows 3+ protein as well as nephrosclerosis. Previous creatinine 2.0 in September and October of 2018. 6. Nausea, vomiting, currently improved. Most likely underlying gastroenteritis. 7. Anemia, rule out iron deficiency and possibly an element of anemia of chronic disease as well. MMODL / IJN: [id number] /
--- NOTE | 2019-09-18 14:42 | US ---
EXAMINATION TYPE: US kidneys/renal and bladder DATE OF EXAM: 09/18/2019 COMPARISON: NONE CLINICAL HISTORY: 49-year-old female with renal failure, abnormal labs. Patient states just voiding before exam TECHNIQUE: Multiple sonographic images of the kidneys and bladder are obtained. FINDINGS: EXAM MEASUREMENTS: Right Kidney: 11.4 x 5.5 x 6.3 cm Left Kidney: 11.6 x 6.0 x 5.8 cm No hydronephrosis on either side. On the right, bowel gas shadowing limits visualization of the upper and lower poles. Bladder: Not visualized, nondistended Bilateral Jets not seen IMPRESSION: No hydronephrosis.
[2019-09-18 16:38] LABS: Glucose,Whole Blood 190 mg/dL (75-99)
--- NOTE | 2019-09-18 18:25 | CONS ---
CONSULTATION ADDENDUM/CONTINUATION OF CONSULTATION: PLAN: Check ultrasound of the kidneys. Repeat labs in a.m. Repeat serum potassium this afternoon. Check iron profile. Add Aranesp for anemia. Patient will need followup as outpatient for CKD. Thank you for this consultation. Will continue to follow the patient with you during her hospitalization. MMODL / IJN: [id number] /
[2019-09-18 19:15] LABS: % Iron Saturation 13.15 (12.00-45.00)
[2019-09-18 21:20] LABS: Glucose,Whole Blood 179 mg/dL (75-99)
[2019-09-18] MEDS: ATORVASTATIN 80 MG TAB PO SCH (21:24)
--- NOTE | 2019-09-18 21:48 | PN ---
PROGRESS NOTE DATE OF DICTATION: 09/18/2019 This patient is a 49-year-old pleasant white female admitted to the hospital with nausea, vomiting and diarrhea of 2 days' duration. She is doing much better today. Her symptoms have completely resolved. She denies any abdominal pain. She has been tolerating regular diet well. PHYSICAL EXAMINATION: Appears comfortable. No apparent distress. Vital signs are stable. Blood pressure 132/79, pulse rate 65, temperature 97.7. HEENT examination unremarkable. Conjunctivae pink. Sclerae anicteric. Oral cavity no lesions. NECK: No JVD or lymph node enlargement. CHEST: Clear to auscultation. HEART: Regular rate and rhythm. ABDOMEN: Soft. It was non-tender, non-distended. Bowel sounds are positive. No organomegaly. EXTREMITIES: No pedal edema. NEUROLOGIC: Alert and oriented x3. No focal deficits. LABS: WBC 6.2, hemoglobin 7.9, platelets are 145. BUN 68, creatinine 3.40. Serum iron 33, TIBC 251, iron saturation 13%. Ferritin is 130. Stool occult blood was negative. IMPRESSION: 1. Acute onset of nausea, vomiting and diarrhea, probably related to viral gastroenteritis. Currently resolved, doing well. 2. Elevated BUN and creatinine with worsening numbers. Nephrology is following the patient closely. 3. Normocytic anemia this is not consistent with iron deficiency anemia. Most likely we are dealing with anemia of chronic disease related to underlying chronic kidney disease. RECOMMENDATIONS: 1. Advance diet as tolerated. 2. Monitor CBC daily. 3. Patient can be discharged home from GI perspective. Thank you for this consultation. MMODL / IJN: [id number] /
[2019-09-19] MEDS: HEPARIN SODIUM,PORCINE 5,000 UNIT/ML 1 ML VIAL SQ SCH ×2 (01:09→08:20)
[2019-09-19 06:24] LABS: Anisocytosis Slight; Basophils % (A) 1 %; Eosinophils # (A) 0.2 k/uL (0-0.7); Eosinophils % (A) 3 %; HCT 26.7 % (34.0-46.0); HGB 8.3 gm/dL (11.4-16.0); Hypochromasia Marked; Lymphocytes % (A) 17 %; MCH 27.3 pg (25.0-35.0); MCHC 30.9 g/dL (31.0-37.0); MCV 88.5 fL (80.0-100.0); Mean Platelet Volume 8.8; Monocytes # (A) 0.3 k/uL (0-1.0); Monocytes % (A) 5 %; Neutrophils # (A) 4.1 k/uL (1.3-7.7); Neutrophils % (A) 73 %; Platelet Count 157 k/uL (150-450); RBC 3.02 m/uL (3.80-5.40); RDW 17.1 % (11.5-15.5); WBC 5.7 k/uL (3.8-10.6)
[2019-09-19 06:36] LABS: Calcium 8.2 mg/dL (8.4-10.2); Potassium 5.6 mmol/L (3.5-5.1)
[2019-09-19 06:36] LABS: Glucose,Whole Blood 188 mg/dL (75-99)
[2019-09-19] MEDS: INSULIN ASPART (NovoLOG) 100 UNIT/ML VIAL SQ SCH ×2 (06:48→12:08)
--- NOTE | 2019-09-19 06:51 | XR ---
EXAMINATION TYPE: XR chest 1V DATE OF EXAM: 09/19/2019 CLINICAL HISTORY: Difficulty breathing and CHF progress study. TECHNIQUE: Single AP portable frontal view of the chest is obtained. COMPARISON: Chest x-ray from 2 days earlier and older studies. FINDINGS: There is persistent cardiomegaly. Diminished inspiration on current study with worsening c entral opacities bilaterally. No new pleural effusion or pneumothorax. Overlying EKG leads currently. Underlying scoliotic curvature or positioning. IMPRESSION: Suspect developing CHF exacerbation as there is cardiomegaly with new moderate central al veolar and interstitial edema. Correlate clinically.
[2019-09-19] MEDS ORDERED: INSULIN DETEMIR (LEVEMIR) 100 UNIT/ML SYR SQ SCH (07:00)
[2019-09-19] MEDS: PANTOPRAZOLE 40 MG/10 ML VIAL IVP SCH (08:19)
[2019-09-19] MEDS: hydrALAZINE HCL 50 MG TAB PO SCH (08:20)
[2019-09-19] MEDS: METOPROLOL TARTRATE 50 MG TAB PO SCH (08:20)
[2019-09-19] MEDS ORDERED: FUROSEMIDE 10 MG/ML 4 ML VIAL IV STA (09:47)
[2019-09-19 10:06] VITALS: BP 156/72; PULSE 67; RESP 16; TEMP 97.6
--- NOTE | 2019-09-19 11:15 | P.PN ---
Subjective HISTORY OF PRESENTING ILLNESS This is a pleasant 49-year-old female past medical history significant for nonischemic cardiomyopathy, chronic systolic heart failure, diabetes mellitus, hypertension, chronic kidney disease and obesity. She follows in the office with Dr. Titus. She underwent cardiac catheterization in 2018 revealing normal coronary arteries with impaired LV systolic function. She is seen and examined laying flat in no acute distress. She denies chest pain, shortness of breath, dizziness or palpitations. Chest x-ray this morning is read as possible interstitial edema however her lungs are grossly clear. Blood pressure 156/72 heart rate 67 afebrile maintaining oxygen saturation on nasal cannula. Laboratory data reviewed, WBC 5.7, hemoglobin 8.3, platelets 157, sodium 137, potassium 5.6, creatinine 3.5. Telemetry tracings unremarkable. PHYSICAL EXAMINATION CONSTITUTIONAL: No apparent distress. HEENT: Head is normocephalic. Pupils are equal, round. Sclerae anicteric. Mucous membranes of the mouth are moist. No JVD. No carotid bruit. CHEST EXAMINATION: Lungs are clear to auscultation. No chest wall tenderness is noted on palpation or with deep breathing. HEART EXAMINATION: Regular rate and rhythm. S1, S2 heard. No murmurs, gallops or rub. EXTREMITIES: 2+ peripheral pulses, no lower extremity edema and no calf tenderness. ASSESSMENT Chest pain and dizziness associated with nausea and vomiting. An acute coronary event has been ruled out. Possible acute GI bleeding with bright red blood noted in the basin at her bedside. Hyperkalemia Anemia Acute on chronic kidney disease Nonischemic cardiomyopathy Chronic systolic heart failure, clinically euvolemic Hypertension Diabetes mellitus Obesity, BMI 39 PLAN Continue current medical regimen. Asymptomatic from a cardiac perspective. Ongoing medical management, we will continue to follow as needed. Follow-up in the office with Dr. Titus upon discharge. Nurse Practitioner note has been reviewed, I agree with a documented findings and plan of care. Patient was seen and examined. Objective - Vital Signs Vital signs: Vital Signs Temp 97.6 F 09/19/19 09:00 Pulse 67 09/19/19 09:00 Resp 16 09/19/19 09:00 BP 156/72 09/19/19 09:00 Pulse Ox 99 09/19/19 09:00 Intake & Output 09/18/19 09/19/19 09/19/19 18:59 06:59 18:59 Intake Total 780 80 180 Output Total 130 550 Balance 650 -470 180 Weight 104.78 kg Intake: Oral 780 80 180 Output: Urine 125 550 Post Void Residual 5 0 Other: Voiding Method Toilet Toilet Toilet # Voids 1 - Labs CBC & Chem 7: 09/19/19 05:52 09/19/19 05:52 Labs: Abnormal Lab Results - Last 24 Hours (Table) 09/18/19 09/18/19 09/18/19 Range/Units 11:35 13:35 16:37 RBC (3.80-5.40) m/uL Hgb (11.4-16.0) gm/dL Hct (34.0-46.0) % MCHC (31.0-37.0) g/dL RDW (11.5-15.5) % Potassium 5.6 H (3.5-5.1) mmol/L Chloride (98-107) mmol/L Carbon Dioxide (22-30) mmol/L BUN (7-17) mg/dL Creatinine (0.52-1.04) mg/dL Glucose (74-99) mg/dL POC Glucose (mg/dL) 208 H 190 H (75-99) mg/dL Calcium (8.4-10.2) mg/dL Iron 33 L (50-170) ug/dL 09/18/19 09/19/19 09/19/19 Range/Units 21:18 05:52 05:52 RBC 3.02 L (3.80-5.40) m/uL Hgb 8.3 L (11.4-16.0) gm/dL Hct 26.7 L (34.0-46.0) % MCHC 30.9 L (31.0-37.0) g/dL RDW 17.1 H (11.5-15.5) % Potassium 5.6 H (3.5-5.1) mmol/L Chloride 113 H (98-107) mmol/L Carbon Dioxide 19 L (22-30) mmol/L BUN 71 H (7-17) mg/dL Creatinine 3.50 H (0.52-1.04) mg/dL Glucose 167 H (74-99) mg/dL POC Glucose (mg/dL) 179 H (75-99) mg/dL Calcium 8.2 L (8.4-10.2) mg/dL Iron (50-170) ug/dL 09/19/19 Range/Units 06:35 RBC (3.80-5.40) m/uL Hgb (11.4-16.0) gm/dL Hct (34.0-46.0) % MCHC (31.0-37.0) g/dL RDW (11.5-15.5) % Potassium (3.5-5.1) mmol/L Chloride (98-107) mmol/L Carbon Dioxide (22-30) mmol/L BUN (7-17) mg/dL Creatinine (0.52-1.04) mg/dL Glucose (74-99) mg/dL POC Glucose (mg/dL) 188 H (75-99) mg/dL Calcium (8.4-10.2) mg/dL Iron (50-170) ug/dL
[2019-09-19 11:23] LABS: Glucose,Whole Blood 215 mg/dL (75-99)
--- NOTE | 2019-09-19 11:24 | PN ---
PROGRESS NOTE DATE OF SERVICE: 09/19/2019 Patient is a 49-year-old pleasant white female admitted to [facility] with acute viral gastroenterit nis with nausea, vomiting, diarrhea, which has subsequently resolved. She was noted to have elevated BUN and creatiine and Nephrology has been consultrated. Patient is moditored closely. She denies any DS symptoms. PHYSICAL EXAMINATION: Appears comfortable. Vital signs are stable. Blood pressure 145/76, pulse rate 68, temperature 98. HEENT: Examination unremarkable, conjunctivae are pink, sclerae nonicteric. Oral cavity no lesions. NECK: No JVD or lymph node enlargement. CHEST: Clear to auscultation. HEART: Regular rate and rhythm. ABDOMEN: Soft, nontender, nondistended. Bowel sounds are positive, no organomegaly. EXTREMITIES: No pedal edema. SKIN: No rashes. NEURO: she is alert and oriented x3. No focal deficits. LABS: From today, BUN 74, creatinine 3.5, hemoglobin 8.3. IMPRESSION: 1. Nausea, vomiting, diarrhea, possible viral gastroenteritis, resolved. 2. Chronic kidney disease with worsening BUN and creatinine. Nephrology following the patient closely. 3. Normocytic anemia, but no evidence of iron-deficiency anemia. RECOMMENDATIONS: 1. Continue symptomatic and supportive care. 2. Continue with the renal diet. 3. Since the GI symptoms have resolved, will sign off at this time. Please call us if needed. Thank you for this consultation. MMRACHELEL / IJN: [id number] /
--- NOTE | 2019-09-19 12:26 | P.DS ---
Providers Date of admission: 09/17/19 01:27 Expected date of discharge: 09/19/19 Attending physician: Alison Jo MD Consults: 09/17/19 01:35 Consult Physician Routine Consulting Provider: [facility] Consult Reason/Comments: Chest pain; Dizziness Do you want consulting provider notified?: Yes 09/17/19 08:14 Consult Physician Routine Consulting Provider: Carolynn Steel Consult Reason/Comments: hyperkalemia, CKD Do you want consulting provider notified?: Yes 09/17/19 09:41 Consult Physician Routine Consulting Provider: Jordan Joseph Consult Reason/Comments: upper GI bleed Do you want consulting provider notified?: Yes Primary care physician: [facility] Hospital Course: This is a 49-year-old female with complex past medical history noted below who p resented to the emergency room with chest pain. Patient was evaluated in the ER and placed on observation for further management of her medical problems noted below. 1. Chest pain, 12-lead EKG showed no acute ischemic changes. Serial troponin negative 3 sets. cardiology consult with no further testing recommended at this time. D-dimer was normal. 2. Nausea and vomiting with bloody emesis: Now resolved, may be attributed to acute gastritis. No known liver cirrhosis or history of gastric ulcer. Seen and evaluated by GI, appreciate recommendation 3. Acute blood loss anemia, most likely blood loss, on chronic anemia of chronic disease: Stool Hemoccult was negative. Aranesp ordered by nephrology 4. Hyperkalemia, treated medically. Seen and evaluated by nephrology. Potassium on the day of discharge was 5.6. Patient was cleared by nephrology for discharge with plan to follow-up in the office for repeat lab work. 5. Type 2 diabetes, on Lantus 25 units twice a day at home. Not well controlled A1c 9.6 6. Essential hypertension: Blood pressure within acceptable range 7. Acute kidney injury on stage IIIB chronic kidney disease, kidney ultrasound showed no hydronephrosis Patient will be discharged home in a stable condition. For further details about this hospitalization please refer to the electronic chart. Patient Condition at Discharge: Serious Plan - Discharge Summary Discharge Rx Participant: No New Discharge Prescriptions: Continue Atorvastatin [Lipitor] 20 mg PO HS Insulin Glargine,Hum.rec.anlog [Lantus Solostar] See Protocol SQ BID Insulin Glargine,Hum.rec.anlog [Lantus Solostar] 25 unit SQ BID Calcium Acetate [PhosLo] 667 mg PO BID-W/MEALS Albuterol Sulfate [Albuterol Sulfate Hfa] 2 puff INHALATION RT-Q4H PRN PRN Reason: Shortness Of Breath Ondansetron [Zofran] 4 mg PO Q6HR PRN PRN Reason: Nausea Metoprolol Tartrate [Lopressor] 50 mg PO BID hydrALAZINE HCL [Apresoline] 50 mg PO TID Ferrous Sulfate [Iron (65 MG Elemental)] 325 mg PO BID-W/MEALS Ipratropium-Albuterol Nebulize [Duoneb 0.5 mg-3 mg/3 ml Soln] 3 ml INHALATION RT-QID PRN PRN Reason: Shortness Of Breath Fluticasone Propion/Salmeterol [Fluticasone-Salmeterol 100-50] 1 puff INHALATION RT-DAILY Changed Furosemide [Lasix] 40 mg PO DAILY #0 Discharge Medication List Atorvastatin [Lipitor] 20 mg PO HS 05/21/19 [History] Insulin Glargine,Hum.rec.anlog [Lantus Solostar] 25 unit SQ BID 05/21/19 [History] Insulin Glargine,Hum.rec.anlog [Lantus Solostar] See Protocol SQ BID 05/21/19 [History] Albuterol Sulfate [Albuterol Sulfate Hfa] 2 puff INHALATION RT-Q4H PRN 09/17/19 [History] Calcium Acetate [PhosLo] 667 mg PO BID-W/MEALS 09/17/19 [History] Ferrous Sulfate [Iron (65 MG Elemental)] 325 mg PO BID-W/MEALS 09/17/19 [History] Fluticasone Propion/Salmeterol [Fluticasone-Salmeterol 100-50] 1 puff INHALATION RT-DAILY 09/17/19 [History] Ipratropium-Albuterol Nebulize [Duoneb 0.5 mg-3 mg/3 ml Soln] 3 ml INHALATION RT-QID PRN 09/17/19 [History] Metoprolol Tartrate [Lopressor] 50 mg PO BID 09/17/19 [History] Ondansetron [Zofran] 4 mg PO Q6HR PRN 09/17/19 [History] hydrALAZINE HCL [Apresoline] 50 mg PO TID 09/17/19 [History] Furosemide [Lasix] 40 mg PO DAILY #0 09/19/19 [Rx] Follow up Appointment(s)/Referral(s): Carolynn Steel MD [STAFF PHYSICIAN] - 1 Week Lio Titus MD [STAFF PHYSICIAN] - 2 Weeks Jim Chau MD [Primary Care Provider] - 1-2 days Discharge Disposition: HOME SELF-CARE
--- NOTE | 2019-09-19 23:15 | PN ---
PROGRESS NOTE Patient is seen for followup for acute kidney injury. Patient's creatinine remains elevated. However, her potassium has improved. It is down to 5.6. She wants to go home. The patient has been voiding. Ultrasound shows no evidence of hydronephrosis. Post-void residual was not high. Blood pressures have not been low. The patient is advised that she could be discharged, but to follow up closely as outpatient in about one week's time. On examination today, blood pressure was 156/72, heart rate of 67 per minute. Patient is afebrile. EXAMINATION OF THE HEART: S1 and S2. EXAMINATION OF LUNGS: Bilateral breath sounds are heard. ABDOMEN: Soft. Examination of lower extremities shows edema trace bilaterally. [employer] exam is grossly intact. Labs show sodium 137, potassium 5.6, chloride 113. CO2 is 19, BUN 71, creatinine 3.5, hemoglobin 8.3 g/dL. ASSESSMENT: 1. Acute kidney injury, most likely acute tubular necrosis, currently nonoliguric. No evidence of obstructive uropathy. No nephrotoxic medications on board. Patient should continue with loop diuretics at home. She should follow up as outpatient in one week's time. 2. Hyperkalemia associated with acute kidney injury, improved. Expect further improvement with low-potassium diet and loop diuretics. 3. Chronic kidney disease mineral bone disorder, maintained on PhosLo. 4. Chronic kidney disease, stage 4, from diabetic nephropathy. UA shows 3+ protein as well as a component of nephrosclerosis. Previous creatinine about 2.0 in September and October of 2018. 5. Nausea and vomiting, currently improved. 6. Anemia. Continue with oral iron supplementation as outpatient. Patient will also need to be started on CARMELLA as outpatient. MMODL / IJN: [id number] /
[2019-09-20] MEDS ORDERED: PANTOPRAZOLE 40 MG TABLET PO SCH (07:30)
== END 2019-09-19 14:45 | disposition home or self-care (01) ==
LOC: EC 23:37 → 3NCARDOBS 09-17 01:27
PROVIDERS: ADMIT Internal Medicine; ATTEND Internal Medicine
DX: R07.89 Other chest pain (principal); K92.0 Hematemesis; R42 Dizziness and giddiness; R06.02 Shortness of breath; R00.2 Palpitations; R07.81 Pleurodynia; D62 Acute posthemorrhagic anemia; E87.5 Hyperkalemia; R19.7 Diarrhea, unspecified; R10.13 Epigastric pain; R10.30 Lower abdominal pain, unspecified; I13.0 Hypertensive heart and chronic kidney disease with heart failure and stage 1 through stage 4 chronic kidney disease, or unspecified chronic kidney disease; E11.22 Type 2 diabetes mellitus with diabetic chronic kidney disease; I50.22 Chronic systolic (congestive) heart failure; N18.4 Chronic kidney disease, stage 4 (severe); N17.9 Acute kidney failure, unspecified; I42.8 Other cardiomyopathies; E89.0 Postprocedural hypothyroidism; E66.01 Morbid (severe) obesity due to excess calories; Z68.39 Body mass index [BMI] 39.0-39.9, adult; R94.31 Abnormal electrocardiogram [ECG] [EKG]; Z20.828 Contact with and (suspected) exposure to other viral communicable diseases; E78.5 Hyperlipidemia, unspecified; D63.8 Anemia in other chronic diseases classified elsewhere; K21.9 Gastro-esophageal reflux disease without esophagitis; M89.9 Disorder of bone, unspecified; Z79.82 Long term (current) use of aspirin; Z79.4 Long term (current) use of insulin; Z79.899 Other long term (current) drug therapy; Z91.012 Allergy to eggs; Z91.048 Other nonmedicinal substance allergy status; Z90.710 Acquired absence of both cervix and uterus; Z82.49 Family history of ischemic heart disease and other diseases of the circulatory system; Z80.9 Family history of malignant neoplasm, unspecified
CPT/HCPCS: 96372 ×4; 96375 ×2; 96376 ×2; 96374; 99285; 36415; 93005; 85379; 80053; 80048 ×3; 82607; 82728; 82746; 83540 ×2; 83550 ×2; 83690; 83735 ×2; 84132 ×2; 84484; 85025 ×3; 85027; 85045; 82272; 81001; 83036; 71045; 71046; 76770; G0378 ×3; U0003; J1644 ×3; J1940; J3250; J2405; J0610; C9113 ×3; J0881

== ENCOUNTER → 2019-10-03 | Outpatient (CLI) | payer BC ==
[2019-10-03 15:41] LABS: Anisocytosis Slight; Basophils # (A) 0.1 k/uL (0-0.2); Basophils % (A) 1 %; Eosinophils # (A) 0.2 k/uL (0-0.7); Eosinophils % (A) 3 %; HCT 30.8 % (34.0-46.0); HGB 9.2 gm/dL (11.4-16.0); Hypochromasia Marked; Lymphocytes # (A) 1.3 k/uL (1.0-4.8); Lymphocytes % (A) 16 %; MCH 26.2 pg (25.0-35.0); MCHC 29.9 g/dL (31.0-37.0); MCV 87.7 fL (80.0-100.0); Mean Platelet Volume 9.1; Monocytes # (A) 0.4 k/uL (0-1.0); Monocytes % (A) 5 %; Neutrophils % (A) 74 %; Platelet Count 171 k/uL (150-450); RBC 3.51 m/uL (3.80-5.40); RDW 17.2 % (11.5-15.5); WBC 8.1 k/uL (3.8-10.6)
[2019-10-03 15:51] LABS: Appearance,Urine Clear (Clear); Bilirubin,Urine Negative (Negative); Blood,Urine Small (Negative); Color,Urine Light Yellow; Glucose,Urine (UA) 3+ (Negative); Ketones,Urine Negative (Negative); Leukocyte Esterase,Urine Negative (Negative); Mucus,Urine Rare /hpf; Nitrite,Urine Negative (Negative); PH, Urine 6.5 (5.0-8.0); Protein,Urine 3+ (Negative); RBC,Urine 13 /hpf (0-5); Specific Gravity,Urine 1.012 (1.001-1.035); Squamous Epithelial Cell,Urine 2 /hpf (0-4); Urobilinogen,Urine <2.0 mg/dL (<2.0); WBC,Urine 1 /hpf (0-5)
[2019-10-04 00:30] LABS: Ferritin 99.2 ng/mL (10.0-291.0)
[2019-10-04 00:45] LABS: % Iron Saturation 8.42 (12.00-45.00); African American GFR (CKD) 17.7 (60.0-200.0); Albumin 3.8 g/dL (3.80-4.90); Anion Gap 9.7 mmol/L (4.00-12.00); BUN/Creat Ratio 23.24 Ratio (12.00-20.00); Calcium 9.4 mg/dL (8.7-10.3); Carbon Dioxide 22.3 mmol/L (21.6-31.8); Non-African American GFR(CKD) 15.3 (60.0-200.0); Phosphorus 5.9 mg/dL (2.4-5.1); Potassium 4.6 mmol/L (3.5-5.5); Uric Acid 7.8 mg/dL (2.9-7.7)
== END | disposition home or self-care (01) ==
LOC: LABWHC1 14:41
PROVIDERS: ATTEND Internal Medicine Nephrology
DX: N17.9 Acute kidney failure, unspecified (principal); E55.9 Vitamin D deficiency, unspecified; N25.81 Secondary hyperparathyroidism of renal origin; M10.9 Gout, unspecified; N39.0 Urinary tract infection, site not specified; D64.9 Anemia, unspecified; R80.9 Proteinuria, unspecified
CPT/HCPCS: 36415; 80048; 81001; 82040; 82306; 82570; 82728; 83540; 83550; 83735; 83970; 84100; 84156; 84550; 85025

== ENCOUNTER 2019-11-01 06:55 | Day surgery (SDC) | payer BC ==
[2019-10-30 16:02] VITALS: BMI 39.8
[2019-11-01 07:30] VITALS: TEMP 97.8
[2019-11-01 07:37] LABS: Glucose,Whole Blood 174 mg/dL (75-99)
[2019-11-01] MEDS: LACTATED RINGERS 1,000 ML IV SCH ×2 (07:37→08:09)
[2019-11-01] MEDS ORDERED: fentaNYL (PF) 50 MCG/ML 2 ML AMP ONE (08:10)
[2019-11-01] MEDS ORDERED: MIDAZOLAM 2 MG/2 ML VIAL ONE (08:10)
[2019-11-01] MEDS ORDERED: PROPOFOL 10 MG/ML 20 ML VIAL IV ONE (08:10)
--- NOTE | 2019-11-01 08:31 | P.PCN ---
Date of Procedure: 11/01/19 Description of Procedure: BRIEF HISTORY: Patient is a 49-year-old female presenting for EGD for evaluation of nausea and vomiting. Patient reports frequent symptoms of nausea and vomiting. She reports workup has been negative so far. PROCEDURE PERFORMED: Esophagogastroduodenoscopy with biopsy. PREOPERATIVE DIAGNOSIS: Nausea and vomiting. ESTIMATED BLOOD LOSS: Minimal. IV sedation per anesthesia. PROCEDURE: After informed consent was obtained, the patient was brought into the endoscopy unit. IV sedation was administered by Anesthesia under continuous monitoring. Initially the Olympus GIF-190 video endoscope was inserted into the mouth. Esophagus intubated without any difficulty. It was gradually advanced into the stomach and duodenum and carefully examined. The bulb and the second part of the duodenum appeared normal, with biopsy. The scope at this time was withdrawn to the stomach, adequately insufflated with air, and upon careful examination, mucosa of the antrum, body, cardia and the fundus appeared normal, except for some mild punctate erythema in the antrum and body suggestive of mild gastritis with biopsies taken. The scope was then withdrawn into the esophagus. The GE junction was located at 41 cm from the incisors and biopsied. The esophagus appeared normal. There were no erosions or ulcerations seen and the patient tolerated the procedure well. IMPRESSION: 1. No masses, ulcers or other pathology to explain symptoms of nausea and vomiting. 2. Mild gastritis. 3. Biopsies of the duodenum, GE junction and antrum and body. RECOMMENDATIONS: The findings of this examination were discussed with the patient. Okay to resume diet. Okay to resume medications. Await pathology from biopsies. Follow up with primary care physician as previously scheduled.
[2019-11-01 08:34] VITALS: RESP 16
[2019-11-01 08:38] LABS: Glucose,Whole Blood 157 mg/dL (75-99)
[2019-11-01 08:44] VITALS: BP 164/82; PULSE 68
== END 2019-11-01 09:00 ==
LOC: ORWHC2ENDO 06:55
PROVIDERS: ATTEND Internal Medicine
DX: K29.50 Unspecified chronic gastritis without bleeding (principal); I10 Essential (primary) hypertension; E78.5 Hyperlipidemia, unspecified; J45.909 Unspecified asthma, uncomplicated; E11.9 Type 2 diabetes mellitus without complications; N28.9 Disorder of kidney and ureter, unspecified; E89.0 Postprocedural hypothyroidism; Z90.710 Acquired absence of both cervix and uterus; Z98.890 Other specified postprocedural states; Z82.49 Family history of ischemic heart disease and other diseases of the circulatory system; Z79.82 Long term (current) use of aspirin; Z79.4 Long term (current) use of insulin; Z79.899 Other long term (current) drug therapy; Z91.048 Other nonmedicinal substance allergy status
CPT/HCPCS: 88305; 43239; J2250; J3010; J2704

== ENCOUNTER → 2020-04-04 | Outpatient (CLI) | payer BC | END | disposition home or self-care (01) | LOC: LABWHC1 15:25 | PROVIDERS: ATTEND Internal Medicine | DX: R06.02 Shortness of breath (principal) | CPT/HCPCS: U0003; C9803 ==

== ENCOUNTER 2022-05-20 12:07 | Day surgery (SDC) | payer BC, MEDICARE ==
[~2022-05-20 12:07] MED LIST changes: +ACETAMINOPHEN TAB 500 MG TAB PO PRN; +HEPARIN SODIUM,PORCINE/PF 5,000 UNIT/0.5 ML SYRINGE SQ PRN; -NITROGLYCERIN SL TABS 0.4 MG TAB SUBLINGUAL PRN
[2022-05-20 12:55] LABS: Glucose,Whole Blood 250 mg/dL (70-110)
[2022-05-20] MEDS ORDERED: SODIUM CHLORIDE 0.9% 1,000 ML IV ONE (13:01)
[2022-05-20] MEDS ORDERED: ONDANSETRON 4 MG/2 ML VIAL IVP ONE ×2 (13:10→14:28)
[2022-05-20] MEDS ORDERED: INSULIN ASPART (NovoLOG) 100 UNIT/ML VIAL SQ ONE ×2 (13:11→16:35)
[2022-05-20] MEDS ORDERED: ONDANSETRON 4 MG/2 ML VIAL ONE (13:13)
[2022-05-20] MEDS ORDERED: fentaNYL (PF) 50 MCG/ML 2 ML AMP ONE (13:46)
[2022-05-20] MEDS ORDERED: SUCCINYLCHOLINE CHLORIDE 200 MG/10 ML VIAL IV ONE (13:46)
[2022-05-20] MEDS ORDERED: LIDOCAINE 2% INJ 20 MG/ML (2 ML VIAL) ONE (13:46)
[2022-05-20] MEDS ORDERED: NEOSTIGMINE 1 MG/ML 10 ML VIAL ONE (13:46)
[2022-05-20] MEDS ORDERED: MIDAZOLAM 2 MG/2 ML VIAL ONE (13:46)
[2022-05-20] MEDS ORDERED: PROPOFOL 10 MG/ML 20 ML VIAL IV ONE (13:46)
[2022-05-20] MEDS ORDERED: GLYCOPYRROLATE 0.2 MG/ML 2 ML VIAL ONE (13:46)
[2022-05-20] MEDS ORDERED: ROCURONIUM 10 MG/ML (5 ML VIAL) IV ONE (13:46)
[2022-05-20] MEDS ORDERED: MINERAL OIL 1 APPLIC/ML OIL TOPICAL ONE (13:49)
[2022-05-20] MEDS ORDERED: BUPIVACAIN-EPI 0.25%-1:200,000 30 ML VIAL SQ ONE ×3 (13:50→14:15)
[2022-05-20] MEDS ORDERED: LIDOCAINE 1% (10MG/ML) FOR IV START INTRADERMA PRN (14:28)
[2022-05-20] MEDS ORDERED: LACTATED RINGERS 1,000 ML IV SCH (14:28)
[2022-05-20] MEDS ORDERED: DEXAMETHASONE SOD PHOSPHATE 4 MG/ML 1 ML VIAL IV ONE (14:28)
[2022-05-20] MEDS ORDERED: NALOXONE 0.4 MG/ML 1 ML VIAL IV PRN (14:49)
[2022-05-20] MEDS ORDERED: HYDROcodone/APAP 5-325MG 1 EACH TAB PO PRN (14:49)
--- NOTE | 2022-05-20 14:51 | P.OP ---
Date of Procedure: 05/20/22 Procedure(s) Performed: PREOPERATIVE DIAGNOSIS: Renal failure POSTOPERATIVE DIAGNOSIS: Same PROCEDURE: Peritoneal dialysis catheter insertion SURGEON: Eulogio EBL: Minimal ANESTHESIA: Sedation plus local COMPLICATIONS: None OPERATIVE PROCEDURE: The patient was placed in the operative table in the supine position. The abdomen was prepped and draped in usual sterile fashion. A small vertical incision was made in the right periumbilical location. Dissection down through the subcutaneous tissues took place using electrocautery. The anterior rectus was divided vertically using the scalpel. The rectus was bluntly. The posterior rectus was visualized. An 0 Vicryl pursestring was placed. A small opening in the posterior rectus fascia and peritoneum took place using a Metzenbaum scissors. There were no adhesions to the suture that was placed. The pigtail catheter was advanced into the pelvis over a stylette. No resistance was met. The inner cuff was secured to the fascia using the 0 Vicryl pursestring that was placed. The catheter was tunneled to an exit site in the right lateral lower quadrant. The catheter was connected to the 1 L bag of saline and approximated 800 mL of saline was easily introduced into the peritoneal cavity. The fluid was then allowed to evacuate. The majority of the fluid was returned. The anterior rectus fascia was then reapproximated using a running 0 Vicryl stitch. The subcutaneous tissues reprepped using 3-0 Vicryl sutures and the skin using 4-0 Monocryl sutures. The outpatient dialysis adapter was applied to the end of the catheter. Sterile dressings were then applied after skin glue was placed over the incision. DISPOSITION: Stable to recovery room
[2022-05-20] MEDS: HYDROmorphone 0.5 MG/0.5 ML SYRINGE IVP PRN ×3 (15:20→16:04)
[2022-05-20 15:40] VITALS: TEMP 96.8
[2022-05-20 15:48] VITALS: RESP 16
[2022-05-20 16:33] LABS: Glucose,Whole Blood 252 mg/dL (70-110)
[2022-05-20 17:45] VITALS: BP 109/62; PULSE 65
== END 2022-05-20 17:59 | disposition home or self-care (01) ==
LOC: OR 12:07
PROVIDERS: ATTEND Surgery
DX: I13.0 Hypertensive heart and chronic kidney disease with heart failure and stage 1 through stage 4 chronic kidney disease, or unspecified chronic kidney disease (principal); I50.9 Heart failure, unspecified; E11.22 Type 2 diabetes mellitus with diabetic chronic kidney disease; N18.4 Chronic kidney disease, stage 4 (severe); E03.9 Hypothyroidism, unspecified; Z99.81 Dependence on supplemental oxygen; Z99.2 Dependence on renal dialysis; Z86.73 Personal history of transient ischemic attack (TIA), and cerebral infarction without residual deficits; Z79.899 Other long term (current) drug therapy; Z79.02 Long term (current) use of antithrombotics/antiplatelets; Z90.710 Acquired absence of both cervix and uterus
CPT/HCPCS: 84132; 49421; C1752; J2250; J0330; J2710; J0690; J2405; J3010; J2704; J1170; J1790; J1644; J2001